=== PATIENT | male | born 1940 | race Caucasian/White ===

== ENCOUNTER 2017-07-12 19:35 | Inpatient (IN) | payer MEDICARE ==
[~2017-07-12] VITALS: Ht 177.8 cm; Wt 82.1 kg
[~2017-07-12 19:35] MED LIST: AVANDIA8 MG; BAYER CHEWABLE81 MG PO; COUMADIN 5 MG TA5 M1; CRESTOR40 MG PO; HYDROCHLOROTHIA25 M1 PO; LEVEMIR; LISINOPRIL10 MG PO; NOVOLOG100 UNIT/1; PRINIVIL10 MG PO; SERTRALINE HCL100 MG PO; TOPROL XL200 MG; VERAPAMIL HCL120 M4 PO; ZETIA10 MG PO
[2017-07-12 19:37] VITALS: BP 108/66
[2017-07-12 20:01] LABS: HEMATOCRIT 28.1 % (42.0-52.0); HEMOGLOBIN 9.3 gm/dL (14.0-18.0); MCH 28.3 pg (26.0-34.0); MCHC 33.2 g/dL (28.0-37.0); MCV 85.2 fL (80.0-100.0); MPV 8.1 fl. (7.2-11.1); NUCLEATED RBCS 0 /100WBC; PLATELET COUNT* 170 thou/uL (150-400); RDW-CV 15.5 % (10.5-14.5); WBC 5.5 thou/uL (4.0-11.0)
[2017-07-12] MEDS ORDERED: ELIQUIS5 MG PO (20:04)
[2017-07-12 20:07] LABS: CALCIUM 8.1 mg/dL (8.5-10.1); CREATININE 1.1 mg/dL (0.6-1.3)
[2017-07-12 20:12] LABS: ALBUMIN 2.1 g/dL (3.4-5.0); TOTAL BILIRUBIN 0.5 mg/dL (<0.1-1.0); TOTAL PROTEIN 5.1 g/dL (6.4-8.2)
[2017-07-12 20:15] LABS: ABSOLUTE LYMPHOCYTES 0.4 thou/uL (0.8-5.3); ABSOLUTE MONOCYTES 0.2 thou/uL (0.0-1.2); ABSOLUTE NEUTROPHILS 4.8 thou/uL (1.6-8.1); ATYPICAL LYMPHS 4 %; PLATELET ESTIMATE ADEQUATE
[2017-07-12 21:23] LABS: INFLUENZA A ANTIGEN None Detected (None Detect); INFLUENZA B ANTIGEN None Detected (None Detect)
[2017-07-12 21:51] LABS: URINE BILIRUBIN NEGATIVE (Negative); URINE BLOOD NEGATIVE (Negative); URINE CLARITY CLEAR; URINE COLOR YELLOW; URINE GLUCOSE-RANDOM 2+ (Negative); URINE KETONES TRACE (Negative); URINE LEUKOCYTES-REFLEX NEGATIVE (Negative); URINE NITRITE-REFLEX NEGATIVE (Negative); URINE PROTEIN 1+ (Negative); URINE SPECIFIC GRAVITY 1.015 (1.005-1.030); URINE UROBILINOGEN 0.2 E.U./dl (0.2-1.0)
[2017-07-12] MEDS ORDERED: NEURONTIN 300300 M1 PO (22:32)
[2017-07-12] MEDS ORDERED: GLUCOPHAGE XR500 M1 PO (22:33)
[2017-07-12] MEDS ORDERED: TRAMADOL 50 MG50 MG PO (22:34)
[2017-07-12] MEDS ORDERED: VERAPAMIL E.R240 M1 PO (22:35)
[2017-07-12] MEDS ORDERED: NOVOLOG100 UNIT/1 SUBQ (22:35)
[2017-07-12] MEDS ORDERED: AUGMENTIN 500-1 EACH PO (22:36)
[2017-07-12] MEDS ORDERED: VITAMIN D1000 UNI2 PO (22:37)
[2017-07-12] MEDS ORDERED: VITAMIN B-12500 MCG PO (22:38)
[2017-07-12 23:54] VITALS: BP 129/66
[2017-07-13 04:00] VITALS: BP 150/58
--- NOTE | 2017-07-13 05:04 | NUR ---
PT ADMITTED FROM ER. HISTORY AND ASSESSMENT COMPLETE. AFIB ON MONITOR. WOUND VAC TO R FOOT UPON ADMIT. UP TO BSC WITH 2 ASSIST. FALL PRECAUTIONS IN PLACE INCLUDING BED ALARM. IVF INFUSING. DENIES PAIN.
[2017-07-13 07:30] VITALS: BP 156/65
--- NOTE | 2017-07-13 10:11 | NUR ---
ASSESSMENT COMPLETED REFER TO COMPUTER CHARTING. CREATIVE SERVICES INTERN TRACKING AFIB. PATIENT REPORTING NO PAIN, NAUSEA OR SHORTNESS OF BREATH. BED IN LOW AND LOCKED POSITION. CALL LIGHT WITHIN REACH. FAMILY AT BEDSIDE. IV FLUIDS INFUSING. ELVATED TEMP OF 101.9 THIS AM. WILL CONTINUE TO MONITOR THIS SHIFT.
[2017-07-13 12:05] VITALS: BP 127/52
[2017-07-13] MEDS ORDERED: TYLENOL325 MG PO (14:13)
[2017-07-13] MEDS ORDERED: DICLOFENAC OPHTHALMIC (14:18)
[2017-07-13] MEDS ORDERED: LANTUS100 UNIT/M SUBQ (14:19)
[2017-07-13] MEDS ORDERED: COLACE100 MG PO (14:21)
[2017-07-13] MEDS ORDERED: FERROUS GLUCON324 M2 PO (14:22)
[2017-07-13] MEDS ORDERED: SENNA8.6 MG PO (14:24)
[2017-07-13] MEDS ORDERED: FLORANEX TABLE1 EACH PO (14:52)
--- NOTE | 2017-07-13 15:38 | NUR ---
Pt out of room at MRI. Reviewed chart and spoke with Hansa at [facility]. Pt has been at skilled at [facility], they are able to accept Pt back at md. Pt has primarily using a wc, d/t wound vac on foot. Pt also has a cane and walker. Dr Scales in to see Pt, scheduled to have surgery with Dr Lyons tomorrow at 330.
[2017-07-13 15:52] VITALS: BP 138/66
--- NOTE | 2017-07-13 17:42 | EKG ---
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 : [id number] Requested By: Leandro Thomas Order Number: [id number] MD: Noah Bundy Measurements Intervals [place] Rate: 103 P: MS: QRS: 57 QRSD: 86 T: 80 QT: 381 QTc: 499 Interpretive Statements Atrial fibrillation Low voltage, extremity leads Baseline wander in lead(s) V6 No previous ECG available for comparison Electronically Signed On 07-13-2017 17:42:27 [employer]PER[employer]OR [employer] by Noah Bundy [email or web address] <ELECTRONICALLY SIGNED> By: Noah Bundy MD, [facility] 07/13/17 1742 D: 01/2213 13 Noah Bundy MD, FACC /EPI
[2017-07-13 20:00] VITALS: BP 151/65
[2017-07-13 22:06] LABS: ABSOLUTE LYMPHOCYTES 0.7 thou/uL (0.8-5.3); ABSOLUTE MONOCYTES 0.3 thou/uL (0.0-1.2); ABSOLUTE NEUTROPHILS 3.4 thou/uL (1.6-8.1); BASOPHILS 0.3 %; EOSINOPHILS 0.1 %; HEMATOCRIT 26.2 % (42.0-52.0); HEMOGLOBIN 8.8 gm/dL (14.0-18.0); LYMPHOCYTES 16.3 %; MCH 28.3 pg (26.0-34.0); MCHC 33.5 g/dL (28.0-37.0); MCV 84.5 fL (80.0-100.0); NUCLEATED RBCS 0 /100WBC; PLATELET COUNT* 147 thou/uL (150-400); POLYS 76.3 %; RDW-CV 15.5 % (10.5-14.5); WBC 4.4 thou/uL (4.0-11.0)
[2017-07-13 22:37] LABS: ALBUMIN 1.8 g/dL (3.4-5.0); CALCIUM 7.7 mg/dL (8.5-10.1); CREATININE 0.9 mg/dL (0.6-1.3); POTASSIUM 3.1 mmol/L (3.5-5.1); TOTAL BILIRUBIN 0.4 mg/dL (<0.1-1.0); TOTAL PROTEIN 4.6 g/dL (6.4-8.2)
[2017-07-13 23:11] LABS: ESR (SEDRATE) 14 mm/hr (0-20)
[2017-07-14 00:04] VITALS: BP 153/44
[2017-07-14 03:59] VITALS: BP 123/62
--- NOTE | 2017-07-14 05:33 | NUR ---
PT CARE ASSUMED AFTER REPORT. ASSESSMENT COMPLETE. AFIB ON MONITOR. UP WITH X2 ASSIST TO BSC. WEAKNESS AND UNSTEADY GAIT. DENIES PAIN. DRESSING TO R FOOT C/D/I. NPO SINCE MIDNIGHT FOR PROCEDURE TODAY. SLOW TO PROGRESS TOWARDS GOALS.
[2017-07-14 08:12] VITALS: BP 139/57
--- NOTE | 2017-07-14 11:04 | NUR ---
ASSUMED CARE OF PT THIS AM AROUND 07- PUSH BUTTON SWITCH ASSEMBLER IN PLACE ORDERED, TRACING A-FIB/RATE CONTROLLED- UPON ASSESSMENT PT NOTED TO BE RESTING IN BED, EYES CLOSED, EASILY AROUSABLE- PT A&O X 4- CONTINENT OF BOWEL AND BLADDER- ASSIST X2 TO BED SIDE COMMODE- LCTA, RESP EVEN AND UN-LABORED- VSS, O2 SAT 99% ON RA- NO C/O DYSPNEA NOTED- ABDOMEN SOFT/ROUND/NON-TENDER, BS X4 QUADS- PT REPORTS LAST BM 07/13/17- +1 BLE EDEMA NOTED- DRESSING TO RIGHT FOOT C/D/I- IV NOTED TO LEFT AC INTACT AND SL- PT CURRENLTY NPO FOR SCHEDULED RIGHT FOOT AMP TODAY- BS MONITORED ORDERED, INSULIN HELD AT THIS TIME R/T NPO STATUS- PT DENIES ANY C/O PAIN/DISCOMFORT AT THIS TIME- CALL LIGHT AND PERSONAL BELONGINGS WITH IN REACH- HOURLY ROUNDS IN PLACE R/T SAFETY/NEEDS- ALL NEEDS MET AT THIS TIME-WCTM
--- NOTE | 2017-07-14 12:44 | CON ---
[address] [address] CONSULTATION Name: VERNON AGUILA MAKENNA Room: [address] IN M.R.#: [id number] Admission: 07/12/17 Attend Phys: Billy Nicole MD Discharge: Date of : 42 Report #: [id number] THIS REPORT FOR: //name// CC: Billy Richard DATE OF SERVICE: 07/13/2017 ATTENDING PHYSICIAN: Billy Nicole MD REASON FOR EVALUATION: Fever with sepsis, lactic acidemia. HISTORY OF PRESENT ILLNESS: Chart reviewed, patient examined. This is a 76-year-old with diabetes mellitus type 2 complicated by vasculopathy, has peripheral neuropathy, previous, and more recent foot surgeries due to osteomyelitis, presented with 1 week history of fevers which have been a high grade. He is not able to give a lot of details. He did note he had recent surgery, felt to have osteomyelitis, extensive debridement including osteoectomy, I believe 2-3 weeks ago. He has had a cough, although denies significant shortness of breath, abdominal pain, although had some loose stools. Evaluation, was noted to have an elevated lactic acid at 3.2. Chest x-ray, perhaps right basilar infiltrate. Influenza antigen was negative. Urinalysis unremarkable. Blood cultures are sterile thus far. Empirically is placed on antibiotics including piperacillin and tazobactam as well as vancomycin. ALLERGIES: PROZAC, PROCAINAMIDE. CURRENT MEDICINES: Include Zosyn, vancomycin, insulin, acetaminophen, ibuprofen. 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 SOCIAL HISTORY: Nonsmoker, no ethanol. FAMILY HISTORY: Noncontributory. REVIEW OF SYSTEMS: As above. PHYSICAL EXAMINATION: GENERAL: He appears chronically ill. He is in mild distress, likely mildly encephalopathic, perhaps [id number], undernourished. VITAL SIGNS: Temperature max 101.9, more recently 99.4; pulse 79; respirations 14; blood pressure 127/52[place] [address] CONSULTATION Name: VERNON AGUILA Room: [address]#: [id number] Admission: 07/12/17 Attend Phys: Billy Nicole MD Discharge: Date of : 42 Report #: [id number] SKIN: Warm, dry, no rashes. HEENT: ____. NECK: Supple. LUNGS: Some basilar crackles posteriorly. HEART: Regular. Borderline tachycardic, cannot appreciate a murmur. ABDOMEN: Soft, nontender, nondistended. EXTREMITIES: Right foot has a wound VAC in place. Defect extending only ____ his lateral aspect of the foot involving the dorsum. GENITOURINARY: Deferred. RECTAL: Deferred. LABORATORY DATA: Blood cultures sterile thus far. Lactic acid serially was 3.2, 3.3 and most recently 2.5. Prealbumin 9.4. Troponin less than 0.06. Urinalysis unremarkable. Influenza antigen was negative. X-ray of the foot: Amputation of the majority of the fifth metatarsophalangeal second through fourth toes, erosive changes involving the second and third metatarsal heads. Chest x-ray: Cardiomegaly with some basilar atelectasis versus infiltrate on the right. CBC: White count of 5.5, H and H 9.3 and 28.1, platelets of 170. He does have lymphocytopenia of 400. Electrolytes: Sodium 130, potassium 4.0, chloride 96, bicarbonate is 27, anion gap of 7, BUN and creatinine 15 and 1.1, glucose elevated to 377. Albumin of 2.1, total protein of 5.1, estimated GFR of 65. LFTs normal. ASSESSMENT: Febrile illness. The patient did have recent surgery, treated, I believe for chronic osteomyelitis involving his right foot. He is post metatarsal osteoectomy. We will continue empiric antimicrobials. Await results of the cultures. Foot seems to be most likely possible source of pyogenic infection. [facility] results and see how he does clinically. Certainly could be a viral secondary to the fact that he is at a facility and ____ viral or respiratory type illnesses, though in the absence of progressive pulmonary complaints other than a dry cough, that seems less likely as well. We will monitor expectantly. <ELECTRONICALLY SIGNED> By: Kevin Brand MD 07/14/17 1244 1230 0129Josocrates Brand MD /nt
[2017-07-14 15:13] VITALS: BP 139/57
[2017-07-14 18:32] VITALS: BP 163/90
--- NOTE | 2017-07-14 18:33 | NUR ---
PT OFF UNIT AT 1445 FOR SURGERY AND RETURNED BACK TO UNIT POST RAY AMP TO RIGHT FOOT AT 1720- VS 98.9 19 136/90 77 96% ON RA- RIGHT FOOT ELEVATED ON PILLOW INSTRUCTED WITH BANDAGE WITH LONI WRAP IN PLACE- BS NOTED AT 168 WITH SSI GIVEN PRESCIBED- PT SET UP AND CURRENLTY EATING DINNER AT THIS TIME- DAUGHTER AT SIDE VISITTING- PT DENIES ANY C/O PAIN/DICOMFORT AT THIS TIME- CALL LIGHT AND PERSOANL BELONGINGS WITH IN REACH- ALL NEEDS MET AT THIS TIME-WCTM
[2017-07-14 20:00] VITALS: BP 141/59
[2017-07-15] VITALS: BP 123/69
[2017-07-15 03:57] VITALS: BP 137/62
[2017-07-15 05:00] LABS: HEMATOCRIT 24.8 % (42.0-52.0)
--- NOTE | 2017-07-15 05:14 | NUR ---
PT CARE ASSUMED AFTER REPORT. ASSESSMENT COMPLETE. AFIB ON MONITOR. DRESSING TO R FOOT C/D/I. ELEVATED ON A PILLOW. PRN PAIN MEDICATION GIVEN PER PT REQUEST. CALL LIGHT IN REACH. BED IN LOWEST POSITION. PROGRESSING TOWARDS GOALS.
[2017-07-15 07:53] VITALS: BP 177/72
[2017-07-15 08:08] LABS: GLYCOHEMOGLOBIN (HGB A1C) 7.6 % (4.8-5.6)
[2017-07-15 10:38] LABS: CALCIUM 7.8 mg/dL (8.5-10.1); CREATININE 0.8 mg/dL (0.6-1.3); MAGNESIUM 1.1 mg/dL (1.8-2.4); POTASSIUM 3.2 mmol/L (3.5-5.1)
--- NOTE | 2017-07-15 10:45 | NUR ---
ASSUMED CARE OF PT THIS AM AROUND 0715- SAFE EXPERT IN PLACE ORDERED, TRACING A-FIB- UPON ASSESSMENT PT NOTED TO BE RESTING IN BED, EYES CLOSED- PT A&O X4- CONTINENT OF BOWEL AND BLADDER- BED REST IN PLACE, Q 2 HOUR TURNS- LCTA, DIMINISHED IN BASES- RESP EVEN AND UN-LABORED- VSS, O2 SAT 98% ON RA- ABDOMEN SOFT/ROUND/NON-TENDER, BS X4 QUADS- LAST BM REPORTED 07/14/17- +1 BLE EDEMA NOTED- RIGHT FOOT ELEVATED ON PILLOW INDICATED- DRESSING TO RIGHT FOOT C/D/I- PRN TYLENOL GIVEN THIS AM AT 0826, PER PT REQUEST, PARTIAL EFFECTIVNESS NOTED- FAIR PO INTAKE NOTED THIS AM- BS MONITORED ORDERED, SSI PRESCRIBED- IV NOTED TO RIGHT HAND INTACT AND SL- CALL LIGHT AND PERSONAL BELONGINGS WITH IN REACH- HOURLY ROUNDS IN PLACE R/T SAFETY/NEEDS- ALL NEEDS MET AT THIS TIME-WCTM
--- NOTE | 2017-07-15 12:03 | NUR ---
Spoke with Pt this AM. He plans to return to [facility] [place]. Pt stated that he normally resides at home, his dtr lives with him and does the cooking and cleaning. Pt was driving upon his hospital stay. Pt stated that he had just started getting up with a walker at [facility]. Following.
[2017-07-15 12:14] VITALS: BP 143/56
--- NOTE | 2017-07-15 14:18 | NUR ---
WOUND CARE NOTE: CONSULT RECEIVED FOR METATARSAL AMPUTATION RT FOOT. PATIENT IS POD #1, DRESSING INTACT WITH LARGE AMOUNTS OF SEROSANGUINEOUS DRAINAGE. DRESSINGS REMOVED, NO ACTIVE BLEEDING NOTED. MEDIAL ASPECT OF FOOT WITH INCISION, THIS IS WELL APPROXIMATED WITH SUTURES. SLIGHTLY EDEMATOUS WITH SMALL AMOUNTS OF SEROUS DRAINAGE. LATERAL END OF FOOT WITH ORIGINAL ULCERATION. WOUND MEASURES 7.5X3.5X1.5. RED, MOIST WOUND BED. WILTON-WOUND SLIGHTLY MACERATED. VERY LATERAL SIDE OF FOOT WITH ULCERATION MEASURING 0.7X0.5X0.1, YELLOW/HERNANDEZ SLOUGH TO ENTIRE ASPECT OF WOUND. WILTON-WOUND INTACT. PLANTAR FOOT WOUND MEASURING 0.8X0.9X0.1, SIMILAR IN APPEARANCE TO THE LATERAL MOST FOOT WOUND. WOUND BED WITH YELLOW/HERNANDEZ SLOUGH TO ENTIRE ASPECT OF WOUND. WILTON-WOUND SLIGHLY MACERATED. CLEANSED ALL WOUNDS/INCISION GENTLY WITH WOUND CLEANSER, PATTED DRY. APPLIED AQUACEL AG TO WOUNDS AND INCISION LINE. COVERED WITH ABD. SECURED WITH KERLIX AND LONI. EDUCATED PATIENT ON KEEPING OFF FOOT TO ASSIST WITH WOUND HEALING, COMMUNICATED UNDERSTANDING. EDUCATED PATIENT ON NUTRITION FOR WOUND HEALING, COMMUNICATED UNDERSTANDING. RECOMMEND OFFLOAD RIGHT FOOT ENCOURAGE GOOD NUTRITION AND HYDRATION TIGHT BLOOD GLUCOSE CONTROL
[2017-07-15 16:45] VITALS: BP 153/75
--- NOTE | 2017-07-15 18:27 | NUR ---
PT CURRENTLY RESTING IN BED, DAUGHTER AT SIDE VISITTING- CARDIAC MONIOTR IN PLACE ORDERED AND CONTINUED, TRACING A-FIB- IV TO RIGHT HAND INTACT AND SL- ORDERS RECIVED FOR PICC TO BE PLACED TODAY PER , PICC NURSE NOTIFIED AND STATES THAT SHE WILL NOT BE ABLE TO DO UNTIL 07/16/17- BETH CLARIFIED AND RESTARTED THIS SHIFT PER - DRESSING TO RIGHT FOOT CHANGED PER WN THIS SHIFT, DRESSING REMAINS C/D/I- LEG ELEVATED ON PILLOW INDICATED- PRN HYDROCODONE AND TYLENOL ALTERNATED THIS SHIFT FOR PAIN, PT REPORTS MEDICATIONS TO BE EFFECTIVE IN MANAGING PAIN- K+ NOTED AT 3.2 AND REPLACED X2 THIS SHIFT PER PROTOCOL, MG NOTED AT 1.1 AND REPLACED X4 THIS SHIFT PER PROTOCOL- REDRAW SCHEDULED FOR 2100- VANC TROUGH RESULTED AT 17 THIS SHIFT, CURRENT DOSE CONTINUE AND GIVEN PRESCRIBED- ZOYSN D/C'D THIS SHIFT PER - HERE TO ASSESS THIS SHIFT- BS MONITORED WITH SSI PRESCRIBED- FAIR PO INTAKE NOTED- CALL LIGHT AND PERSONAL BELONGINGS WITH IN REACH- ALL NEEDS MET AT THIS TIME-WCTM
[2017-07-15 20:49] VITALS: BP 144/69
[2017-07-16] VITALS: BP 141/57
[2017-07-16 04:00] VITALS: BP 172/77
[2017-07-16 08:00] VITALS: BP 160/94
--- NOTE | 2017-07-16 08:13 | NUR ---
PT IS ABLE TO COMMUNICATE HIS NEEDS TO STAFF EFFECTIEVLY. CURRENT PAIN MEDICATION REGIMEN HAS BEEN ADEQUATE FOR CONTROLLING HIS PAIN UP TO THIS TIME. RIGHT FOOT TOES AMPUTATED AND HAVE A SURGICAL BANDAGE + LONI WRAP; SURG AND DR. HINES TO FOLLOW UP WITH PATIENT SOON.
--- NOTE | 2017-07-16 10:05 | NUR ---
ASSUMED CARE OF PT AT 0730 AFTER RECIEVING BEDSIDE REPORT FRON NOC SHIFT NURSE. PT IS A&O X4 CALM AND COOPERATIVE. PT HR HAS BEEN IN THE 150-160'S RANGE. DR GAYLE NOTIFIED AND DILATIAZEM DRIP STARTED AT 10ML/HR PRESSURE STABLE AT125/72 AND RATE INCREASED TO 15ML/HR, RATE CURRENTLY IN THE 130'S TO LOW 140'S. NURSING WILL CONTINUE TO MONITOR AND TITRATE PER ORDDERS.
[2017-07-16 11:59] VITALS: BP 123/58
--- NOTE | 2017-07-16 15:39 | NUR ---
NOTIFIED TO PLACE A PICC FOR A PATIENT DISCHARGING HOME WITH IV ANTIBIOTICS. ORDER AND CONSENT NOTED. THE PROCEDURE WELL BENIFITS AND RISK FOR DVT AND INFECTION DICUSSED AND HE VERBALIZED UNDERSTANDING. A #3F SINGLE LUMEN POWER PICC PLACED PER POLICY AFTER A BEDSIDE TIMEOUT COMPLETE. PICC TRIMMED TO 45CM AND ADVANCED WITHOUT DIFFICULTY. LINE CONFIRMED AT 0CM EXTERNAL. LINE SECURED AND RELEASED FOR USE
[2017-07-16 16:18] VITALS: BP 114/73
[2017-07-16 20:40] VITALS: BP 119/52
[2017-07-17] VITALS: BP 119/52
[2017-07-17 04:00] VITALS: BP 123/56
[2017-07-17 08:00] VITALS: BP 120/55
--- NOTE | 2017-07-17 08:09 | NUR ---
PATIENT RESTING IN BED. DENIES NEEDS. REPORT GIVEN TO ONCOMING NURSE. BED ALARM ON.
[2017-07-17 08:10] LABS: MAGNESIUM 1.6 mg/dL (1.8-2.4); POTASSIUM 3.5 mmol/L (3.5-5.1)
[2017-07-17 16:38] VITALS: BP 105/66
[2017-07-17 20:00] VITALS: BP 108/68
[2017-07-17 23:45] VITALS: BP 110/70
[2017-07-18 04:50] LABS: HEMATOCRIT 21.5 % (42.0-52.0); HEMOGLOBIN 7.2 gm/dL (14.0-18.0); MCH 27.5 pg (26.0-34.0); MCHC 33.6 g/dL (28.0-37.0); MPV 8.7 fl. (7.2-11.1); RBC 2.62 mil/uL (4.50-6.00); RDW-CV 15.8 % (10.5-14.5)
[2017-07-18 05:05] LABS: ALBUMIN 1.7 g/dL (3.4-5.0); CALCIUM 8.1 mg/dL (8.5-10.1); CREATININE 0.7 mg/dL (0.6-1.3); MAGNESIUM 1.8 mg/dL (1.8-2.4); POTASSIUM 3.5 mmol/L (3.5-5.1); TOTAL BILIRUBIN 0.3 mg/dL (<0.1-1.0); TOTAL PROTEIN 4.5 g/dL (6.4-8.2)
[2017-07-18 05:47] VITALS: BP 100/44
[2017-07-18 08:01] VITALS: BP 104/54
[2017-07-18 13:18] VITALS: BP 119/54
[2017-07-18 16:31] VITALS: BP 127/67
--- NOTE | 2017-07-18 19:03 | NUR ---
ASSUMED CARE OF PT AT 0735. PT CONTINUES TO BE A&O X4 CALM AND COOPERATIVE. C/O OF RIGHT FOOT PAIN CONTROLLED WITH PRN PO PAIN MEDICATIONS. PT HAS NO C/O DISTRESS, VSS, O2 SATS ADEQUATE ON ROOM AIR. DRESSING TO RIGHT FOOT CHANGED. NURSING WILL CONTINUE TO MONITOR.
[2017-07-18 20:00] VITALS: BP 134/68
[2017-07-18 23:37] VITALS: BP 113/53
[2017-07-19 04:17] VITALS: BP 110/53
[2017-07-19 04:39] LABS: HEMATOCRIT 20.7 % (42.0-52.0); MCH 27.3 pg (26.0-34.0); MCHC 34.1 g/dL (28.0-37.0); MCV 80.2 fL (80.0-100.0); MPV 7.8 fl. (7.2-11.1); RBC 2.58 mil/uL (4.50-6.00); RDW-CV 15.7 % (10.5-14.5); WBC 4.7 thou/uL (4.0-11.0)
[2017-07-19 05:04] LABS: ALBUMIN 1.7 g/dL (3.4-5.0); CALCIUM 8.3 mg/dL (8.5-10.1); MAGNESIUM 1.7 mg/dL (1.8-2.4); POTASSIUM 3.1 mmol/L (3.5-5.1); TOTAL BILIRUBIN 0.3 mg/dL (<0.1-1.0); TOTAL PROTEIN 4.4 g/dL (6.4-8.2)
--- NOTE | 2017-07-19 05:40 | NUR ---
PT CARE ASSUMED AFTER REPORT. ASSESSMENT COMPLETE. AFIB ON MONITOR. CONTACT PRECAUTIONS IN PLACE. PRN PAIN MEDICATION GIVEN PER PT REQUEST. PT BG 45 AT 0450. AMP D50 GIVEN AFTER JUICE AND GRAHM CRACKERS. BG CAME UP TO 132. DRESSING TO R FOOT C/D/I. ELEVATED ON PILLOWS. CALL LIGHT IN REACH. BED IN LOWEST POSITION. FALL PRECAUTIONS IN PLACE INCLUDING BED ALARM. PROGRESSING TOWARDS GOALS.
[2017-07-19 08:00] VITALS: BP 112/61
--- NOTE | 2017-07-19 08:00 | NUR ---
VSS, ASSUMED CARE IN THE AM, ASSESSMENT PERFORMED AND CHARTED, FALL PRECAUTIONS INPLACE AND CALL LIGHT IN REACH, PT IS A&O4 N RA AND UP WITH MAX ASSIST EELING VERY WEAK, PT GAOL IS TO WORK WITH PT/OT AND IMPROVE ACTIVITY, PT IS TRACING A-FIB ON THE MONITOR WILL FOLLOW WITH PLAN OF CARE.
[2017-07-19 12:38] VITALS: BP 109/52
[2017-07-19 16:58] VITALS: BP 110/56
[2017-07-19 17:01] VITALS: BP 109/68; BP 129/68; BP 133/73; BP 139/68
[2017-07-19 17:01] LABS: % SATURATION 8 % (20-39); IRON 14 ug/dL (50-175)
--- NOTE | 2017-07-19 19:12 | NUR ---
VSS, PT IS TRACING AFIB ON THE MONITOR, UP WITH MAX ASSIST, PT IS WEAK AND ON RA AND IS A&O4, PT IS RECEVING BLOOD AT THIS TIME, PT WORKED WITH PT AND SAT UP TO BEDSIDE, WILL FOLLOW WITH PLAN OF CARE AND HOURLY ROUNDS COMPLETED.
[2017-07-19 20:00] VITALS: BP 129/69
[2017-07-20 00:24] VITALS: BP 126/62
--- NOTE | 2017-07-20 04:19 | NUR ---
FINISHED 1 UNIT OF BLOOD AT BEGINNING OF SHIFT WITHOUT ADVERSE REACTION NOTED. RESTING WITHOUT COMPLAINTS. DRESSING TO RT LE DRY AND INTACT. BED IN LOW POSITION, CALL LIGHT WIHIN REACH. NO SIGN OF DISTRESS, CONT. WITH CURRENT PLAN OF CARE AT THIS TIME.
[2017-07-20 04:22] VITALS: BP 128/75
[2017-07-20 07:30] VITALS: BP 138/68
[2017-07-20 09:30] LABS: HEMATOCRIT 28.8 % (42.0-52.0)
[2017-07-20 09:31] LABS: HEMOGLOBIN 9.1 gm/dL (14.0-18.0)
--- NOTE | 2017-07-20 10:47 | NUR ---
Updated Hansa at [facility] that Pt should be ready to dc within the next few days.
[2017-07-20 12:00] VITALS: BP 126/80
--- NOTE | 2017-07-20 14:46 | S ---
[place] [address] SURGICAL PATH RPT PROCEDURE Name: VERNON AGUILA Room: [facility]- ADM IN M.R.#: [id number] Admission: 07/12/17 Date of : 42 Discharge: Report #: [id number] Path Case #: [id number] PATHOLOGY REPORT COLLECTION DATE: 07/15/2017 RECEIVED DATE: 07/15/2017 SUBMITTING PHYS: Dr. William Sclaes OTHER PHYS: Dr. Billy Brand SPECIMEN(S) RECEIVED: A.Right great toe B.Right foot metatarsals 1 - 4 * * * * * * * * * * * * FINAL DIAGNOSIS: A. Right great toe, amputation: - Benign great toe with extensive acute inflammation and necrosis of soft tissues and osteomyelitis of underlying phalangeal bone, with proximal disarticulation margin free of osteomyelitis. - Soft tissues with severe calcifying arteriosclerosis and prominent acute inflammation at proximal resection margin. B. Right foot metatarsals 1 through 4: - Four benign metatarsal segments, all with proximal transection margins free of osteomyelitis. - Distal aspect of metatarsal 4 with prominent osteomyelitis. - Soft tissues (attached to metatarsal 2) showing severe, near occlusive, calcifying arteriosclerosis. (TARIQ:db; 07/20/2017) PATHOLOGIST: Fish Heaton M.D. REPORT ELECTRONICALLY SIGNED BY: Fish Heaton M.D. DATE/TIME: 07/20/2017 14:46 * * * * * * * * * * * * GROSS PATHOLOGY: A. The specimen is received in formalin labeled "Vrenon Aguila, right great toe". Received is an amputated digit measuring 6.5 x 3.9 x 3.2 cm in greatest dimensions. The bone margin is smooth and concave in appearance, consistent with disarticulation. The soft tissue margin is moderately necrotic in appearance. The bone and soft tissue margins are inked black. The nail is present displaying a pale barraza, thickened and flaky appearance. The medial aspect of the specimen displays a poorly circumscribed, irregular in contour and bob-brown to brown-black lesion measuring 3.8 x 2.1 cm, which grossly abuts the skin margin. A full-thick[place] [address] SURGICAL PATH RPT PROCEDURE Name: VERNON AGUILA Room: [address] IN [facility].#: [id number] Admission: 07/12/17 Date of : 42 Discharge: Report #: [id number] Path Case #: [id number] submitted in cassettes A1 through A3, from proximal to distal aspects, following decalcification. A access representative section of the aforementioned lesion with adjacent skin margin is submitted in cassette A4. B. The specimen is received in formalin labeled "Vernon Aguila, right foot metatarsals 1 through 4". Received are 4 segments of bone, connected by bob-barraza to pale barraza soft tissue, ranging in size from 2.9 x 1.6 x 1.2 to 4.8 x 2.4 x 2.3 cm in greatest dimensions. The bone margins are blunted in appearance, consistent with transection. The opposing bone margins of toes 1 through 3 are smooth and convex in appearance, consistent with disarticulation. The opposing bone margin of toe 4 is jagged in appearance. The transected margins are inked as follows: Toe 1-black, toe 2-blue, toe 3-yellow, toe 4-red. Each segment of bone is longitudinally sectioned and access representative sections are submitted as follows: B1 longitudinal section of toe 1 transected margin, following decalcification B2 longitudinal section of toe 2 transected margin, following decalcification B3 longitudinal section of toe 3 transected margin, following decalcification B4 full-thickness longitudinal cross-section of toe 4, following decalcification. (CAA; 07/16/2017) CLINICAL HISTORY: Osteomyelitis right foot Transmetatarsal amputation (RAY) INITIAL CPT CODE(S): A; 72360, 49291 B; 29559, 80729 Professional services performed by [employer] at [facility], [facility] [address], [place] [address]. Technical services performed by [employer] at [address] [place] [address], [address], [place] [address]. [facility] [employer] [address] [place] [address] PHONE: [phone] DIRECTOR: Arcenio Iglesias M.D. * * * END OF REPORT * * *
[2017-07-20 16:00] VITALS: BP 136/72
--- NOTE | 2017-07-20 19:57 | NUR ---
vss, assumed care of pt in the am, ASSESSMENT PERFORMED AND CHARTED, FALL PRECAUTIONS IN PLACE AND CALL LIGHT IN REACH, PT IS A&O4 ON RA AND IS AFIB ON THE MONITOR, PT DENIES ANY PAIN AND IS UP WITH MAX ASSIST, 50% WEIGHT BEARING ON RIGHT FOOT, PT GOAL IS TO SIT UPO IN CHAIR AND IMPROVE DIET, AT THIS TIME HOURLY ROUNDS COMPLETED, PT MET GOAL WORKED WITH PT/OT AND WAS UP IN CHAIR FOR LUNCH AND DINNER. NO OTHER STATUS CHANGE AT THIS TIME,
[2017-07-20 20:00] VITALS: BP 127/81
--- NOTE | 2017-07-21 00:52 | NUR ---
NO COMPLAINTS OF PAIN OR DISCOMFORT. CONT. A-FIB ON MONITOR. ASSIST WITH BEDPAN, AND TURNING EVERY 2 HOURS. NO SIGN OF DISTRESS. BED IN LOW POSITION, CALL LIGHT IN REACH, BED ALARM ON. CONT. WITH CURRENT PLAN OF CARE AT THIS TIME.
[2017-07-21 01:16] VITALS: BP 108/53
[2017-07-21 04:00] VITALS: BP 113/65
[2017-07-21 07:54] VITALS: BP 116/64
--- NOTE | 2017-07-21 09:45 | NUR ---
ASSUMED CARE OF PT THIS AM AROUND 0715- PUMP ROOM OPERATOR IN PLACE ORDERED, TRACING A-FIB RATE CONTROLLED- UPON ASSESSMENT PT NOTED TO BE RESTING IN BED, EYES CLOSED- PT A&O X4- CONTINENT OF BOWEL AND BLADDER- BED REST IN PLACE WITH Q 2 HOUR TURNS- CRACKLES NOTED, RESP EVEN AND [id number] COUGH NOTED, WITH CLEAR SPUTUM REPORTED PER PT- UP DATED ON ASSESSMENT FINDINGS WITH ORDERS RECIVED FOR CHEST X-RAY AND LABS- ABDOMEN SOFT/ROUND/NON-TENDER, BS X4 QUADS- PT REPORTS BM 07/23/17 AT HS- +1 EDEMA NOTED TO UE, 1-2+ BLE PITTING EDEMA- BS MONITORED ORDERED, INSULIN HELD THIS AM WITH BS NOTED AT 85- RUE SINGLE LUMEN PICC NOTED, DRESSING C/D/I- DRESSING TO RLE INTACT WITH NO VISIBLE DRAINAGE NOTED-GOOD PO INTAKE NOTED THIS AM WITH [employer]- PT DENIES ANY C/O PAIN/DISCOMFORT AT THIS TIME- CALL LIGHT AND PERSONAL BELONGINGS WITH IN REACH- HOURLY ROUNDS IN PLACE R/T SAFETY/NEEDS- ALL NEEDS MET AT THIS TIME-WCTM
[2017-07-21 10:46] LABS: ABSOLUTE MONOCYTES 0.4 thou/uL (0.0-1.2); ABSOLUTE NEUTROPHILS 4.2 thou/uL (1.6-8.1); BASOPHILS 0.3 %; EOSINOPHILS 0.7 %; HEMATOCRIT 27.6 % (42.0-52.0); HEMOGLOBIN 8.8 gm/dL (14.0-18.0); LYMPHOCYTES 17.1 %; MCH 26.5 pg (26.0-34.0); MCHC 31.9 g/dL (28.0-37.0); MCV 83.1 fL (80.0-100.0); MONOCYTES 7.3 %; MPV 8.1 fl. (7.2-11.1); NUCLEATED RBCS 0 /100WBC; POLYS 74.6 %; RBC 3.32 mil/uL (4.50-6.00); RDW-CV 17.9 % (10.5-14.5); WBC 5.7 thou/uL (4.0-11.0)
[2017-07-21 10:51] LABS: PLATELET COUNT* 307 thou/uL (150-400)
[2017-07-21 10:58] LABS: CALCIUM 8.4 mg/dL (8.5-10.1); CREATININE 1.7 mg/dL (0.6-1.3); POTASSIUM 4.6 mmol/L (3.5-5.1)
[2017-07-21 11:29] VITALS: BP 110/55
--- NOTE | 2017-07-21 14:35 | OP ---
[address] [address] OPERATIVE REPORT Name: VERNON AGUILA Room: [address] IN M.R.#: [id number] Admission: 07/12/17 Attend Phys: Billy Nicole MD Discharge: Date of : 42 Report #: [id number] THIS REPORT FOR: //name// CC: Billy Richard DATE OF SERVICE: 07/14/2017 SURGEON: William Scales DPM PREOPERATIVE DIAGNOSIS: Osteomyelitis, right distal foot with nonhealing infected ulceration. POSTOPERATIVE DIAGNOSIS: Osteomyelitis, right distal foot with nonhealing infected ulceration. PROCEDURE: 1. Transmetatarsal amputation, left foot with partial primary closure. 2. Pedicle skin flap, right foot. 3. Incision and drainage, right foot. ANESTHESIA: MAC. INJECTABLES: A 30 mL of a 1:1 mixture of 0.5% Marcaine plain and 1% lidocaine plain. HEMOSTASIS: Right ankle pneumatic tourniquet at 275 mmHg. SPECIMENS: Right distal first, second, third and fourth metatarsals. CULTURES: 1. Bone, right fourth metatarsal, aerobic and anaerobic. 2. Soft tissue, right foot, aerobic and anaerobic. ESTIMATED BLOOD LOSS: 100 mL. SUTURES: 3-0 nylon. COMPLICATIONS: None. DESCRIPTION OF PROCEDURE: The patient was brought to the OR, placed on the table supine with induction of monitored anesthesia care. A well-padded right ankle pneumatic tourniquet was placed. Right ankle block was then given. The extremity was prepped and draped aseptically. The foot was then exsanguinated with inflation of the tourniquet. A #10 surgical blade was used to create a fishmouth incision around the distal right foot and [place] [address] OPERATIVE REPORT Name: VERNON AGUILA Room: [address] IN .R.#: [id number] Admission: 07/12/17 Attend Phys: Billy Nicole MD Discharge: Date of : 42 Report #: [id number] were then retracted dorsally and plantarly exposing the distal first through fourth metatarsals. Most of the fifth metatarsal head already been previously surgically resected. Electrocautery was used for intraoperative hemostasis. A sagittal saw was then used to transect the first through fourth metatarsals through their mid shaft regions. I then removed the bone and examined it. The distal second, third and fourth metatarsals were necrotic with discolored and soft bone. We took a customer retention representative portion of the fourth metatarsal and sent it for aerobic and anaerobic bone cultures. I took some surrounding soft tissues for the same soft tissue cultures. I transected the metatarsals at the proximal aspect of the bone. It was hardened and did not have any clinical signs of infection. I removed the sesamoid from the great toe region as well and I debulked the wound anterior of unnecessary tendons and soft tissue as well as some necrotic tissue around the third and fourth metatarsal regions. I then excised redundant skin to allow adequate skin flap closure. The wound was then irrigated with 1 liter of sterile saline and dried. The plantar skin flap was then mobilized dorsally and sutured from medial to lateral using 3-0 nylon in simple interrupted fashion. I was not able to entirely close the wound, as there was too much of a soft tissue defect at the lateral fourth and fifth MTP regions from the prior surgery and soft tissue infection. I did pack the wound in this area with Gelfoam and covered it with Aquacel Ag and then the foot was wrapped with ABDs, Kerlix and Jamison bandage. The tourniquet was deflated. No active bleeding. The patient left the OR alert and oriented with no pain or complications noted. <ELECTRONICALLY SIGNED> By: William Scales DPM 07/21/17 1435 0552 [id number] Scales DPM /nt
--- NOTE | 2017-07-21 14:35 | CON ---
[address] [address] CONSULTATION Name: VERNON AGUILA MAKENNA Room: [address] IN M.R.#: [id number] Admission: 07/12/17 Attend Phys: Billy Nicole MD Discharge: Date of : 42 Report #: [id number] THIS REPORT FOR: //name// CC: Billy Sloan DO DATE OF SERVICE: 07/16/2017 CHIEF COMPLAINT: Status post right transmetatarsal amputation for osteomyelitis. He is on parenteral vancomycin, surgical cultures grew MRSA. His surgical pathology is still pending. He feels well, he has been afebrile with good appetite. He relates low grade pain to the right foot. PHYSICAL EXAMINATION: The surgical incisions have well coapted with minimal inflammation and no sharita cellulitis. There is no pallor or cyanosis of the open wound to the lateral aspect of the foot, has red granulation with a mixture of slough with no visible bone. Negative Homans or Dowd sign either extremity. IMPRESSION: Status post right transmetatarsal amputation for osteomyelitis with diabetes mellitus. PLAN: The wound was cleansed and redressed with Aquacel Ag and gauze. I will follow during his hospitalization. <ELECTRONICALLY SIGNED> By: William Scales DPM 07/21/17 1435 1125 Marie Scales DPM /brandi
--- NOTE | 2017-07-21 14:35 | CON ---
[address] [address] CONSULTATION Name: VERNON AGUILA Room: [address] IN M.R.#: [id number] Admission: 07/12/17 Attend Phys: Billy Nicole MD Discharge: Date of : 42 Report #: [id number] THIS REPORT FOR: //name// CC: Billy Sloan DO DATE OF SERVICE: 07/15/2017 CHIEF COMPLAINT: Postoperative day #1 for right transmetatarsal amputation with primary closure. HISTORY OF PRESENT ILLNESS: He had chronic osteomyelitis of the right distal fourth metatarsal, and perhaps the adjacent second and third metatarsals with a nonhealing ulceration. Surgical bone and tissue cultures growing Staphylococcus aureus, presumptive MRSA. He is on parenteral vancomycin with good tolerance. He has been afebrile, he feels better than yesterday and has a good appetite. He has had bed rest today. His Eliquis was restarted, which is fine. This morning's hemoglobin was 8.0. I reviewed Vascular Surgery's note, likely adequate perfusion for healing with no indicated Vascular Surgery at this time. PHYSICAL EXAMINATION: Incisions well coapted with no pallor, cyanosis or dehiscence. The lateral wound margin remains open as this area was unable to be surgically closed due to the substantial soft tissue loss already present preoperatively. There is red granulation with a mixture of slough to the area. No Homans' or Dowd sign noted. No sharita cellulitis. IMPRESSION: Status post right TMA with partial closure due to osteomyelitis, type 2 diabetes mellitus, peripheral vascular disease. PLAN: I ordered PT, OT for tomorrow, partial weight to the foot and a surgical shoe for transfers and short distances. Continue daily wound care. He will likely require PICC line with prolonged IV antibiotics. <ELECTRONICALLY SIGNED> By: William Scales DPM 07/21/17 1435 1823 [id number] Scales DPM /nt
--- NOTE | 2017-07-21 14:35 | CON ---
[address] [address] CONSULTATION Name: VERNON AGUILA Room: [address] IN M.R.#: [id number] Admission: 07/12/17 Attend Phys: Billy Nicole MD Discharge: Date of : 42 Report #: [id number] THIS REPORT FOR: //name// CC: Billy Sloan DO DATE OF SERVICE: 07/17/2017 CHIEF COMPLAINT: Status post right transmetatarsal amputation for osteomyelitis. He is on parenteral vancomycin, his surgical bone and tissue cultures grew MRSA. Surgical pathology is still pending. He had a low grade fever of 100.2 last night. He feels well, he denies chills or night sweats and he has a good appetite. He has low-grade pain to the right foot. PHYSICAL EXAMINATION: The surgical incision is well coapted with minimal inflammation and no sharita cellulitis. The foot is warm with palpable dorsalis pedis and posterior tibial pulses. There are no signs of acute vascular embarrassment. There is no active bleeding present. The open wound bed to the lateral foot has a mixture of granulation and slough and is packed with Gelfoam. IMPRESSION: Osteomyelitis, status post right transmetatarsal amputation. PLAN: I debrided the wound with a sterile curette to remove subcutaneous tissue and slough from the lateral aspect. This was an excisional surgical debridement. It was cleansed and then repacked with Yeimy Saldana ABD and Denver smith. I will follow the patient tomorrow for dressing change. <ELECTRONICALLY SIGNED> By: William Scales DPM 07/21/17 1435 1123 [id number] Scales DPM /nt
--- NOTE | 2017-07-21 14:35 | CON ---
[address] [address] CONSULTATION Name: VERNON AGUILA Room: [address] IN M.R.#: [id number] Admission: 07/12/17 Attend Phys: Billy Nicole MD Discharge: Date of : 42 Report #: [id number] THIS REPORT FOR: //name// CC: Billy Richard CHIEF COMPLAINT: Postoperative right transmetatarsal amputation for osteomyelitis, surgical pathology is pending. Surgical bone and tissue cultures grew MRSA. He is on parenteral vancomycin with good tolerance. He is anemic. Current hemoglobin is 7.0, hematocrit 20.7. He has been afebrile, feels well with good appetite and denies pain to the right foot. LABORATORY DATA: WBC 4.7, RBC 2.58, hemoglobin 7.0, hematocrit 20.7, platelets 193. BUN 12, creatinine 1.0, potassium 3.1, albumin 1.7. PHYSICAL EXAMINATION: Foot is improved with no inflammation or sharita cellulitis. The incision is well coapted with no pallor or cyanosis. The lateral aspect has open wound, which is packed with Gelfoam with no active bleeding. Negative Homans' or Dowd sign to either extremity. IMPRESSION: Status post right transmetatarsal amputation, osteomyelitis, diabetes mellitus with peripheral vascular disease. PLAN: The wound was cleansed and redressed with Aquacel Ag, ABD, Kerlix and Jamison. The patient may place some weight to the foot in a surgical shoe for transfers. Discussed with nurse, the patient may require blood transfusion. <ELECTRONICALLY SIGNED> By: William Scales DPM 07/21/17 1435 1242 [id number] Scales DPM /nt
[2017-07-21 16:06] VITALS: BP 127/70
--- NOTE | 2017-07-21 18:42 | NUR ---
PT CURRENTLY RESTING IN BED- ELECTRICAL LINE MECHANIC IN PLACE ORDERED, TRACING A-FIB- RUE PICC IN PLACE AND SL- ANA CHRISTLY ON HOLD R/T CRITICAL VANC OF 27- REDRAW SCHEDULED FOR 07/22/17 @ 1030- FAIR PO INTAKS NOTED WITH MEALS THIS SHIFT- DRESSING TO RIGHT LE/FOOT CHANGED THIS SHIFT PER - CHEST X-RAY RESULTS ALONG WITH BNP THIS SHIFT COMMUNICATED TO WITH INSTRUCTIONS FOR ABT TO BE CONTROLLED PER ID, ON CASE AND UPDATED- NEPHROLOGY CONSULTED FOR DIURESIS MANAGEMENT, AND CALLED THIS SHIFT FOR CONSULT- NEROLOGY YET TO SEE PT- CALL PAGED OUT TO F/U WITH CONSULT AT 1840 THIS SHIFT-BS MONITORED PRESCIBED, INSULIN AND METFORMIN PRESCRIBED- PT DENIES ANY C/O PAIN/DISCOMFORT AT THIS TIME- CALL LIGHT AND PERSONAL BELONGINGS WITH IN REACH- ALL NEEDS MET AT THIS TIME-WCTM
[2017-07-21 19:50] VITALS: BP 138/77
[2017-07-22 00:07] VITALS: BP 126/61
[2017-07-22 04:05] VITALS: BP 98/49
[2017-07-22 05:54] LABS: ABSOLUTE EOSINOPHILS 0.1 thou/uL (0.0-0.7); ABSOLUTE MONOCYTES 0.4 thou/uL (0.0-1.2); ABSOLUTE NEUTROPHILS 3.8 thou/uL (1.6-8.1); BASOPHILS 0.5 %; EOSINOPHILS 1.5 %; LYMPHOCYTES 19.1 %; MCH 26.8 pg (26.0-34.0); MCHC 33.2 g/dL (28.0-37.0); MCV 80.9 fL (80.0-100.0); MONOCYTES 6.6 %; NUCLEATED RBCS 0 /100WBC; PLATELET COUNT* 251 thou/uL (150-400); POLYS 72.3 %; RBC 2.96 mil/uL (4.50-6.00); RDW-CV 17.5 % (10.5-14.5); WBC 5.3 thou/uL (4.0-11.0)
[2017-07-22 06:11] LABS: ALBUMIN 1.6 g/dL (3.4-5.0); CALCIUM 8.3 mg/dL (8.5-10.1); CREATININE 1.8 mg/dL (0.6-1.3); MAGNESIUM 1.7 mg/dL (1.8-2.4); PHOSPHORUS* 4.2 mg/dL (2.5-4.9); POTASSIUM 4.2 mmol/L (3.5-5.1); TOTAL BILIRUBIN 0.3 mg/dL (<0.1-1.0); TOTAL PROTEIN 4.4 g/dL (6.4-8.2)
--- NOTE | 2017-07-22 06:54 | NUR ---
A&O X4 CALM COOPERITVE. AFIB ON THE MONITOR. PT MAX ASSIST TO COMODE. FALL PRECAUTIONS IN PLACE. VITALS WNL. HOURLY ROUNDING FOR SAFETY.
[2017-07-22 08:03] VITALS: BP 124/68
--- NOTE | 2017-07-22 10:09 | NUR ---
ASSUMED CARE OF PT THIS AM AROUND 0715- GUNITE NOZZLE OPERATOR IN PLACE ORDERED, TRACING A-FIB- UPON ASSESSMENT PT NOTED TO BE RESING IN BED- PT A&O X4- CONTINENT OF BOWEL AND BLADDER, USING BEDPAN/URINAL- Q2 HOUR TURNS IN PLACE INDICATED- CRACKLES ASSCULTATED BILATERALLY, COUGH NOTED- VSS, O2 SAT 97% ON RA- ABDOMEN SOFT/ROUND/NON-TENDER, BS X4 QUADS- PT REPORTS LAST BM 07/21/17- 1+ BLE UE/LE, WITH NOTED IMPROVMENT FROM 07/21/17 R/T LASIX ADMINISTRATION- GOOD PO INTAKE NOTED THIS AM- RUE SINGLE LUMEN PICC NOTED, DRESSING C/D/I AND FLUSHING WELL- MG THIS AM NOTED AT 1.7, 1ST DOSE MAG GIVEN AT 0921 PER PROTOCAL, WITH 2ND DOSE TO FOLLOW- BS MONITORED PRESCRIBED, INSULIN HELD THIS AM R/T 64 BS- PT RATES PAIN 4/10 T RIGHT FOOT, REPOSITION NOTED WITH LEG ELEVATION- DRESSING TO RLE INTACT WITH NO VISIBLE DRAINAGE NOTED- CALL LIGHT AND PERSONAL BELONGINGS WITH IN REACH- HOURLY ROUNDS IN PLACE R/T SAFETY/NEEDS- ALL NEEDS MET AT THIS TIME-WCTM
[2017-07-22 12:00] VITALS: BP 116/56
--- NOTE | 2017-07-22 15:20 | NUR ---
WOUND NURSE: PER PATIENT'S NURSE: PATIENT'S DRESSING WAS ALREADY CHANGED BY DR. HINES. NO INTERVENTION BY THIS NURSE A RESULT.
[2017-07-22 15:30] VITALS: BP 98/44
--- NOTE | 2017-07-22 16:26 | NUR ---
PT MARVA RESTING IN BED- PELT SHEARER CONTINUED INDICATED, TRACING A-FIB- RUE PICC NOTED INTACT, FLUSHING WELL AND SL- FAIR PO INTAKE NOTED THIS SHIFT WITH MEALS- DRESSING TO RIGHT FOOT CHANGED PER THIS SHIFT, DRESSING REMAINS C/D/I WITH NO VISIBLE DRAINGE NOTED- VANC TROUGH THIS SHIFT NOTED AT 24, CONTINUED TO BE ON HOLD WITH REDRAW SCHEDULED FOR 07/23/17 @ 1030- MG REPLACED PER PROTOCOL THIS SHIFT- REDRAW AT 1555 NOTED AT 1.6 WILL CONTINUE REPLACEMENT- BS MONITORED ORDERED, INSULIN PRESCRIBED- PT WORKING WITH THERAPIES TODAY, UP TO BED SIDE CHAIR TOLERATING WELL- NO C/O PAIN AT THIS TIME- CALL LIGHT AND PERSOANL BELONGINGS WITH IN REACH- ALL NEEDS MET AT THIS TIME-WCTM
[2017-07-22 20:10] VITALS: BP 128/53
[2017-07-23] VITALS: BP 113/55
[2017-07-23 04:00] VITALS: BP 110/56
[2017-07-23 05:41] LABS: HEMATOCRIT 23.2 % (42.0-52.0); HEMOGLOBIN 7.7 gm/dL (14.0-18.0); MCH 26.8 pg (26.0-34.0); MCV 81.1 fL (80.0-100.0); MPV 7.9 fl. (7.2-11.1); RBC 2.86 mil/uL (4.50-6.00); WBC 7.6 thou/uL (4.0-11.0)
[2017-07-23 05:43] LABS: CALCIUM 8.1 mg/dL (8.5-10.1); CREATININE 1.9 mg/dL (0.6-1.3); POTASSIUM 4.8 mmol/L (3.5-5.1)
[2017-07-23 06:31] LABS: ALBUMIN 1.8 g/dL (3.4-5.0); CALCIUM 8.2 mg/dL (8.5-10.1); CREATININE 1.9 mg/dL (0.6-1.3); MAGNESIUM 2.1 mg/dL (1.8-2.4); PHOSPHORUS* 4.4 mg/dL (2.5-4.9); POTASSIUM 4.9 mmol/L (3.5-5.1)
--- NOTE | 2017-07-23 07:46 | NUR ---
A&O X4 CALM COOPERITVE. PT IS BEDREST WITH MAX ASSIST X2 WHEN GETTING UP. PT IS AFIB ON THE MONITOR, STABLE RYTHEM. PT IS TO BE BLADDER SCANED AFTER EVERY UNINATION FOR RETENTION. PT HAS EDEMA GENERALIZED. RA. VITALS WNL. FALL PRECAUTIONS IN PLACE. HOURLY ROUNDING FOR SAFETY.
[2017-07-23 08:28] VITALS: BP 106/53
--- NOTE | 2017-07-23 11:00 | NUR ---
VSS, ASSUMED CARE IN THE AM, ASSESSMENT PERFORMED AND CHARTED, FALL PRECAUTIONS IN PLACE AND CALL LIGHT IN REACH, PT IS ON RA, A&O4 AND UP WITH ONE TO BSE, AND IS TRACING AFIB ON THE MONITOR, PT DENIES ANY PAIN AND HAS PICC AND HAS FLUSH AND DRAWS, PT GOAL IS TO D/C TO [facility], AT THIS TIME PT HAS RECIVED D/C ORDERS, PT IS IV AND TELE TAKEN OUT, PT IS TO D/C WITH RIGHT PICC LINE, FILLED OUT PT MEDICATIO SHEETS AND D/C INSTRUCTIONS, CALLED REPORT TO [facility] AND GAVE REPORT TO TAMAR AND PROVITED CALL BACK NUMBER, PT BELONGING GATHERED AND PLACED WITH PT, D/C PAPERS GIVEN TO TRANSPORTER AND PT TAKEN OUT BY WHEELCHAIR TO WHEEL CHAIR VAN, HOURLY ROUNDS COMPLETED.
[2017-07-23 11:30] VITALS: BP 115/49
[2017-07-23 12:12] VITALS: BP 106/53
--- NOTE | 2017-07-28 12:46 | CON ---
[address] [address] CONSULTATION Name: VERNON AGUILA Room: [address] IN M.R.#: [id number] Admission: 07/12/17 Attend Phys: Billy Nicole MD Discharge: 07/23/17 Date of : 41 Report #: [id number] THIS REPORT FOR: //name// CC: Billy Richard DATE OF SERVICE: 07/21/2017 CHIEF COMPLAINT: Status post right transmetatarsal amputation. Surgical pathology showed abundant osteomyelitis to the distal fourth metatarsal with a clear resection site. There is also osteomyelitis to the right great toe proximal phalange. The second and third metatarsals were negative. Tissue and bone cultures grew MRSA. He is on parenteral vancomycin. He has had increased BUN and creatinine, Nephrology consult pending. LABORATORY DATA: WBC 5.7, RBC 3.32, hemoglobin 8.8, hematocrit 27.6, platelets 307. BUN 15, creatinine 1.7, glucose 158. PHYSICAL EXAMINATION: Incisions well approximated without inflammation or cardinal signs of infection. The lateral wound is packed with Gelfoam with no active bleeding. The foot is warm with dopplerable pulses and no pallor or cyanosis. Negative Homans or Dowd sign to either extremity. IMPRESSION: Osteomyelitis, right foot, status post transmetatarsal amputation, type 2 diabetes mellitus with peripheral vascular disease. PLAN: Excisional ulcer debridement performed to the right foot to excise subcutaneous tissue and slough from the wound bed. This was an excisional surgical debridement. Bleeding was stopped with pressure. The wound was cleansed and packed with Aquacel Ag and covered with ABDs, Kerlix and Jamison. The patient to have bandages changed daily. <ELECTRONICALLY SIGNED> By: William Scales DPM 07/28/17 1246 1512 [id number] Scales DPM /nt
--- NOTE | 2017-07-28 12:46 | CON ---
[address] [address] CONSULTATION Name: VERNON AGUILA Room: [address] IN M.R.#: [id number] Admission: 07/12/17 Attend Phys: Billy Nicole MD Discharge: 07/23/17 Date of : 41 Report #: [id number] THIS REPORT FOR: //name// CC: Billy Richard DATE OF SERVICE: 07/22/2017 CHIEF COMPLAINT: Postoperative follow up for right transmetatarsal amputation for osteomyelitis with retained postoperative wound. Surgical bone and tissue cultures grew MRSA, he is on parenteral vancomycin. He has had some acute renal insufficiency. He has been afebrile, denies pain to the foot, good appetite. He has done some ambulation for short distances and transfers with physical therapy wearing a surgical shoe and using a walker. He has remained afebrile with stable vitals. LABORATORY DATA: WBC 5.3, RBC 2.96, hemoglobin 8.0, hematocrit 24.0, platelets 251. BUN 17, creatinine 1.8, glucose 88. PHYSICAL EXAMINATION: The incision is well approximated with no inflammation or cellulitis. There are strong pedal pulses with no pallor or cyanosis. The foot is warm with no acute vascular insufficiency. The open wound at the lateral aspect has no active bleeding with a mixture of granulation and slough as well as Gelfoam foam from the surgery. I can palpate the stumps of the proximal fourth and fifth metatarsals through the open wound. Lower extremity edema is decreased since yesterday, negative Homans or Dowd sign in either leg. No popliteal tenderness or adenopathy bilaterally. PLAN: Excisional ulcer debridement of the open wound with scissors and forceps to excise subcutaneous tissue and slough. This was an excisional surgical debridement. Scant bleeding achieved and stopped with pressure. The wound was cleansed and dressed with Aquacel Ag and covered with ABDs, Kerlix and Jamison wrap. I will follow the patient daily during his hospitalization. <ELECTRONICALLY SIGNED> By: William Scales DPM 07/28/17 1246 1246 [id number] Scales DPM /nt
--- NOTE | 2017-07-28 15:02 | CON ---
[address] [address] CONSULTATION Name: AGUILAVERNON MENSAH Room: [address] IN M.R.#: [id number] Admission: 07/12/17 Attend Phys: Billy Nicole MD Discharge: 07/23/17 Date of : 42 Report #: [id number] THIS REPORT FOR: //name// CC: Billy Richard NEPHROLOGY CONSULT CONSULTING PHYSICIAN: Billy Nicole MD REASON FOR CONSULTATION: Acute kidney injury. HISTORY OF PRESENT ILLNESS: This is a 76-year-old gentleman with right foot osteomyelitis and sepsis. He recently had a foot surgery with amputation of his distal metatarsal and presented to the hospital with fevers and he chills. He is currently on the antibiotic therapy. He did receive some fluid resuscitation when his creatinine bumped from 1 on 07/19/2017 to 1.7 to now 1.8. He had an elevated vancomycin level. He has no complaints at present. REVIEW OF SYSTEMS: Constitutional, psych, heme, eyes, ENT, respiratory, cardiac, GI, , endocrine, all negative except as documented above. PAST MEDICAL AND SURGICAL HISTORY: Diabetic retinopathy, hypertension, history of CHF, dyslipidemia, AFib, appendectomy, history of left lower extremity DVT in 1994. FAMILY HISTORY: Not pertinent in this 76-year-old gentleman. SOCIAL HISTORY: No tobacco. CURRENT MEDICATIONS: Reviewed. PHYSICAL EXAMINATION: VITAL SIGNS: Blood pressure 116/56, pulse 63, respirations 17, temperature 36.2. GENERAL: No acute distress. EYES: Extraocular movements intact. EARS: Externally normal. CARDIOVASCULAR: Regular rate. LUNGS: No crackles, diminished. ABDOMEN: Soft. EXTREMITIES: Lower extremities, some mild swelling. Upper extremities, positive for swelling. PSYCHIATRIC: Awake, alert. LABORATORY DATA: White cell count 5.3, hemoglobin 8, platelets 251. Sodium 137, potassium 4.2, chloride 104, bicarbonate 28, BUN of 17, creatinine 1.8, [place] [address] CONSULTATION Name: VERNON AGUILA Room: [address] IN ..#: [id number] Admission: 07/12/17 Attend Phys: Billy Nicole MD Discharge: 07/23/17 Date of : 42 Report #: [id number] glucose 88, calcium 8.3, magnesium 1.7, phosphorus 4.2, albumin is 1.6. ASSESSMENT: 1. Acute kidney injury with a creatinine of 1 on 07/19/2017 up to 1.8 on 07/22/2017 in the setting of vancomycin level of 24. UA is noted. He is nonoliguric. 2. Hypomagnesemia. 3. Right foot osteomyelitis. 4. Hypertension. 5. Diabetes. 6. Anemia. Defer to Internal Medicine. 7. Hypoalbuminemia with an albumin of 1.6. PLAN: 1. Check bladder scan. 2. Check renal ultrasound. 3. Would consider changing vancomycin to an alternative antibiotic. 4. Hold metformin. 5. Hold lisinopril. 6. Check CK. 7. Magnesium replaced. 8. No indication for aggressive diuresis at this point from my standpoint. We will follow him closely, but he may down the road need albumin and diuresis. Thank you for requesting my opinion in the care and management of this patient. <ELECTRONICALLY SIGNED> By: Riaz Dale MD 07/28/17 1502 1719 0057Abijade Paiz MD /nt
== END 2017-07-23 16:00 | DRG 853 ==
LOC: M.ERS 19:35 → M.TBA-ER 21:53 → M.2W 21:53
PROVIDERS: Emergency Medicine Emergency Medical Services; Family Medicine; Internal Medicine; Internal Medicine Nephrology; Podiatrist Foot & Ankle Surgery; ADMIT Internal Medicine
PROC: 0Y6P0Z3 Detachment at Right 1st Toe, Low, Open Approach (ICD-10-PCS; principal; 2017-07-14)
PROC: 0JBQ0ZZ Excision of Right Foot Subcutaneous Tissue and Fascia, Open Approach (ICD-10-PCS; principal; 2017-07-14)
PROC: 0HXMXZZ Transfer Right Foot Skin, External Approach (ICD-10-PCS; principal; 2017-07-14)
PROC: 0Y6T0Z3 Detachment at Right 3rd Toe, Low, Open Approach (ICD-10-PCS; principal; 2017-07-14)
PROC: 0Y6R0Z3 Detachment at Right 2nd Toe, Low, Open Approach (ICD-10-PCS; principal; 2017-07-14)
PROC: 0Y6V0Z3 Detachment at Right 4th Toe, Low, Open Approach (ICD-10-PCS; principal; 2017-07-14)
PROC: 02HV33Z Insertion of Infusion Device into Superior Vena Cava, Percutaneous Approach (ICD-10-PCS; 2017-07-16)
PROC: 30233N1 Transfusion of Nonautologous Red Blood Cells into Peripheral Vein, Percutaneous Approach (ICD-10-PCS; 2017-07-19)
DX: A41.9 Sepsis, unspecified organism (principal); E43 Unspecified severe protein-calorie malnutrition; M86.9 Osteomyelitis, unspecified; I42.9 Cardiomyopathy, unspecified; R65.20 Severe sepsis without septic shock; I50.9 Heart failure, unspecified; E78.5 Hyperlipidemia, unspecified; I48.91 Unspecified atrial fibrillation; E11.319 Type 2 diabetes mellitus with unspecified diabetic retinopathy without macular edema; E11.42 Type 2 diabetes mellitus with diabetic polyneuropathy; E11.51 Type 2 diabetes mellitus with diabetic peripheral angiopathy without gangrene; E83.42 Hypomagnesemia; E11.69 Type 2 diabetes mellitus with other specified complication; E87.6 Hypokalemia; D64.9 Anemia, unspecified; I11.0 Hypertensive heart disease with heart failure; E88.09 Other disorders of plasma-protein metabolism, not elsewhere classified; L97.519 Non-pressure chronic ulcer of other part of right foot with unspecified severity; Z79.82 Long term (current) use of aspirin; Z86.718 Personal history of other venous thrombosis and embolism; Z90.49 Acquired absence of other specified parts of digestive tract; Z88.8 Allergy status to other drugs, medicaments and biological substances; Z68.26 Body mass index [BMI] 26.0-26.9, adult

== ENCOUNTER → 2017-07-28 | Outpatient (CLI) | payer MEDICARE ==
[~2017-07-28] MED LIST changes: +AUGMENTIN 500-1 EACH PO; +COLACE100 MG PO; +DICLOFENAC OPHTHALMIC; +ELIQUIS5 MG PO; +FERROUS GLUCON324 M2 PO; +FLORANEX TABLE1 EACH PO; +GLUCOPHAGE XR500 M1 PO; +LANTUS100 UNIT/M SUBQ; +NEURONTIN 300300 M1 PO; +NOVOLOG100 UNIT/1 SUBQ; +SENNA8.6 MG PO; +TRAMADOL 50 MG50 MG PO; +TYLENOL325 MG PO; +VERAPAMIL E.R240 M1 PO; +VITAMIN B-12500 MCG PO; +VITAMIN D1000 UNI2 PO
--- NOTE | 2017-07-29 13:59 | CON ---
[address] [address] CONSULTATION Name: VERNON AGUILA MAKENNA Room: [facility] Manish#: [id number] Admission: 07/28/17 Attend Phys: William Scales DPM Discharge: Date of : 42 Report #: [id number] THIS REPORT FOR: //name// CC: William Richard DATE OF SERVICE: 07/28/2017 ATTENDING PHYSICIAN: William Scales DPM He was evaluated in the outpatient wound care center. The patient returns today in followup, having been hospitalized and underwent right lateral foot surgery osteoectomy for chronic osteomyelitis. He states he generally has been feeling fairly well, it is unclear how much ambulating he is doing. Denies systemic illness. He has completed roughly 2 weeks of parenteral therapy for a planned 6-week course. On evaluation, the wound appears to be somewhat boggy; however, post-debridement, it had improved appearance. There is some concern ongoing about perfusion to the site heal. Chronic osteomyelitis. At this point, we would continue the antibiotics as prescribed. We will get weekly labs. We will see him back in 2 weeks. <ELECTRONICALLY SIGNED> By: Kevin Brand MD 07/29/17 1359 0653 [id number] Brand MD /nt
== END ==
LOC: M.WC 01:28
DX: E11.621 Type 2 diabetes mellitus with foot ulcer (principal); L97.511 Non-pressure chronic ulcer of other part of right foot limited to breakdown of skin; I48.91 Unspecified atrial fibrillation; E11.69 Type 2 diabetes mellitus with other specified complication; M86.68 Other chronic osteomyelitis, other site; Z87.891 Personal history of nicotine dependence

== ENCOUNTER → 2017-08-04 | Outpatient (CLI) | payer MEDICARE | LOC: M.WC 02:58 | DX: E11.622 Type 2 diabetes mellitus with other skin ulcer (principal); L97.821 Non-pressure chronic ulcer of other part of left lower leg limited to breakdown of skin; E11.621 Type 2 diabetes mellitus with foot ulcer; L97.511 Non-pressure chronic ulcer of other part of right foot limited to breakdown of skin; L89.893 Pressure ulcer of other site, stage 3; E11.51 Type 2 diabetes mellitus with diabetic peripheral angiopathy without gangrene; E11.69 Type 2 diabetes mellitus with other specified complication; M86.8X7 Other osteomyelitis, ankle and foot; I10 Essential (primary) hypertension; I48.91 Unspecified atrial fibrillation; Z87.891 Personal history of nicotine dependence ==

== ENCOUNTER → 2017-08-11 | Outpatient (CLI) | payer MEDICARE ==
--- NOTE | 2017-08-12 12:55 | CON ---
[address] [address] CONSULTATION Name: VERNON AGUILA MAKENNA Room: [facility] Patrick.#: [id number] Admission: 08/11/17 Attend Phys: William Scales DPM Discharge: Date of : 42 Report #: [id number] THIS REPORT FOR: //name// CC: William Sloan DATE OF SERVICE: 08/11/2017 ATTENDING PHYSICIAN: Dr. William Scales. LOCATION: Seen in [facility] as an outpatient. REASON FOR EVALUATION: Chronic ulceration. HISTORY OF PRESENT ILLNESS: He is post osteoectomy, right foot osteomyelitis. He has generally been doing fairly well. He denies significant localizing signs or symptoms. He has not been systemically ill. He has completed 4 weeks of parenteral therapy of a planned 6 weeks course. ASSESSMENT AND PLAN: Chronic osteomyelitis. At this point, would maintain the current approach, wound care as described by Dr. Scales. He is going to have Vascular Surgery reevaluate the wound to evaluate whether there is adequate perfusion to the distal transmetatarsal site, although he was able to make him bleed fairly well. We will see him in 2 weeks. <ELECTRONICALLY SIGNED> By: Kevin Brand MD 08/12/17 1255 0730 [id number] Brand MD /nt
== END ==
LOC: M.WC 01:46
DX: E11.621 Type 2 diabetes mellitus with foot ulcer (principal); L97.511 Non-pressure chronic ulcer of other part of right foot limited to breakdown of skin; E11.622 Type 2 diabetes mellitus with other skin ulcer; L97.821 Non-pressure chronic ulcer of other part of left lower leg limited to breakdown of skin; E11.51 Type 2 diabetes mellitus with diabetic peripheral angiopathy without gangrene; L89.893 Pressure ulcer of other site, stage 3; E11.69 Type 2 diabetes mellitus with other specified complication; M86.8X7 Other osteomyelitis, ankle and foot; I10 Essential (primary) hypertension; I48.91 Unspecified atrial fibrillation; Z87.891 Personal history of nicotine dependence

== ENCOUNTER → 2017-08-18 | Outpatient (CLI) | payer MEDICARE | LOC: M.WC 01:37 | DX: E11.621 Type 2 diabetes mellitus with foot ulcer (principal); L97.511 Non-pressure chronic ulcer of other part of right foot limited to breakdown of skin; E11.622 Type 2 diabetes mellitus with other skin ulcer; I70.235 Atherosclerosis of native arteries of right leg with ulceration of other part of foot; I87.2 Venous insufficiency (chronic) (peripheral); L97.821 Non-pressure chronic ulcer of other part of left lower leg limited to breakdown of skin; E11.40 Type 2 diabetes mellitus with diabetic neuropathy, unspecified; L89.893 Pressure ulcer of other site, stage 3; E11.51 Type 2 diabetes mellitus with diabetic peripheral angiopathy without gangrene; E11.69 Type 2 diabetes mellitus with other specified complication; M86.8X7 Other osteomyelitis, ankle and foot; I48.91 Unspecified atrial fibrillation; I10 Essential (primary) hypertension; Z87.891 Personal history of nicotine dependence ==

== ENCOUNTER → 2017-08-25 | Outpatient (CLI) | payer MEDICARE ==
--- NOTE | 2017-08-26 11:33 | CON ---
[address] [address] CONSULTATION Name: VERNON AGUILA Room: [facility] NIHARIKA Hammond#: [id number] Admission: 08/25/17 Attend Phys: William Scales DPM Discharge: Date of : 42 Report #: [id number] THIS REPORT FOR: //name// CC: William Sloan DATE OF SERVICE: 08/25/2017 ATTENDING PHYSICIAN: Dr. William Scales. HISTORY OF PRESENT ILLNESS: The patient returns today in followup, having completed 6 weeks of parenteral therapy for osteomyelitis involving his right foot transmetatarsal amputation. He does have an open wound at this point, apparently seen by Vascular Surgery who recultured him last week, distinction from previous MRSA. He is now growing Enterobacter, is fairly susceptible with exception of ampicillin related antibiotics. On questioning, he states he feels fairly well. He has not had significant systemic illness. On examination of the wound, it appears to be somewhat moist. There is some mild degree of inflammation noted. There has not been a significant amount of healing over the course of the last couple of weeks. Chronic osteomyelitis. At this point, I think it is reasonable to discontinue the vancomycin for the MRSA. We will extend antibiotics utilizing ceftriaxone. He is in a facility for an additional week. He is to follow up with Dr. Ford, who is to perform an angiography and possible stenting if there is notable lesion. Continue wound care as described by Dr. Scales, will see him back in 1 week. <ELECTRONICALLY SIGNED> By: Kevin Brand MD 08/26/17 1133 0656 [id number] Brand MD /nt
== END ==
LOC: M.WC 03:30
DX: E11.621 Type 2 diabetes mellitus with foot ulcer (principal); L97.511 Non-pressure chronic ulcer of other part of right foot limited to breakdown of skin; E11.51 Type 2 diabetes mellitus with diabetic peripheral angiopathy without gangrene; E11.40 Type 2 diabetes mellitus with diabetic neuropathy, unspecified; E11.69 Type 2 diabetes mellitus with other specified complication; M86.8X7 Other osteomyelitis, ankle and foot; I10 Essential (primary) hypertension; I48.91 Unspecified atrial fibrillation; Z87.891 Personal history of nicotine dependence

== ENCOUNTER → 2017-09-01 | Outpatient (CLI) | payer MEDICARE ==
--- NOTE | 2017-09-02 11:47 | CON ---
[address] [address] CONSULTATION Name: VERNON AGUILA Room: [facility] Patrick.#: [id number] Admission: 09/01/17 Attend Phys: William Scales DPM Discharge: Date of : 42 Report #: [id number] THIS REPORT FOR: //name// CC: William Sloan DATE OF SERVICE: 09/01/2017 INFECTIOUS DISEASE FOLLOWUP ATTENDING PHYSICIAN: Dr. William Scales. The patient returns in followup of ongoing treatment for large dehiscence involving the right transmetatarsal amputation site due to chronic osteomyelitis to complete extended course of antimicrobial therapy. Followup culture with a different organism course last week, he received parenteral ceftriaxone, previously been on vancomycin for MRSA. He generally feels okay. Denies significant pain or discomfort associated with the foot. He has not had systemic illness including fevers. Appetite has been generally good. On examination, it was confirmed by Dr. Scales there is not exposed bone at this point. There is moderate degree of debris and devitalized tissue that was removed surgically. ASSESSMENT AND PLAN: Chronic osteomyelitis. At this point, it is reasonable to discontinue the antibiotics. He is scheduled to follow up with vascular surgery. There is a concern about possible compromising vasculopathy, may be amenable to intervention such as an arterial stenting. We will see him in followup in 2 weeks. Maintain the PICC line in the interim, monitor expectantly. <ELECTRONICALLY SIGNED> By: Kevin Brand MD 09/02/17 1147 2055 [id number] Brand MD /nt
== END ==
LOC: M.WC 04:49
DX: E11.621 Type 2 diabetes mellitus with foot ulcer (principal); I70.235 Atherosclerosis of native arteries of right leg with ulceration of other part of foot; L97.511 Non-pressure chronic ulcer of other part of right foot limited to breakdown of skin; E11.40 Type 2 diabetes mellitus with diabetic neuropathy, unspecified; E11.69 Type 2 diabetes mellitus with other specified complication; M86.8X7 Other osteomyelitis, ankle and foot; I10 Essential (primary) hypertension; I48.91 Unspecified atrial fibrillation; Z87.891 Personal history of nicotine dependence

== ENCOUNTER → 2017-09-03 | Outpatient (CLI) | payer MEDICARE ==
--- NOTE | 2017-09-02 14:46 | NUR ---
TALITA was asked to assist in getting Pt transportation for Pt to his procedure tomorrow. CM contacted Pt's skilled facility, Chelsy [facility]tega, staff at [facility] will transport Pt in the morning. Pt needs to arrive at 7am, for his procedure at 830am. Updated Pt's dtr, Lorena.
[~2017-09-03] VITALS: Ht 177.8 cm; Wt 74.8 kg
[2017-09-03 07:42] VITALS: BP 164/65
[2017-09-03 07:43] LABS: HEMATOCRIT 24.3 % (42.0-52.0); HEMOGLOBIN 7.8 gm/dL (14.0-18.0); MCH 26.5 pg (26.0-34.0); MCHC 32.2 g/dL (28.0-37.0); MCV 82.4 fL (80.0-100.0); MPV 7.2 fl. (7.2-11.1); RBC 2.95 mil/uL (4.50-6.00); RDW-CV 19.1 % (10.5-14.5); WBC 3.7 thou/uL (4.0-11.0)
[2017-09-03 07:53] LABS: CALCIUM 8.5 mg/dL (8.5-10.1); CREATININE 0.9 mg/dL (0.6-1.3); POTASSIUM 3.4 mmol/L (3.5-5.1)
[2017-09-03 07:56] LABS: APTT 28.5 Seconds (25.0-31.3); INR 1.3; PROTIME 12.6 Seconds (9.20-11.50)
[2017-09-03 07:57] LABS: ALBUMIN 3.1 g/dL (3.4-5.0); TOTAL BILIRUBIN 0.6 mg/dL (<0.1-1.0); TOTAL PROTEIN 5.9 g/dL (6.4-8.2)
[2017-09-03 16:08] VITALS: BP 171/68
--- NOTE | 2017-09-11 14:18 | OP ---
[facility] [address] [place] [address] OPERATIVE REPORT Name: VERNON AGUILA Room: [facility].#: [id number] Admission: 09/03/17 Attend Phys: Jer Turner Discharge: Date of : 42 Report #: [id number] THIS REPORT FOR: //name// CC: Eric Sloan DATE OF SERVICE: 09/03/2017 PREOPERATIVE DIAGNOSIS: Peripheral vascular disease with ulcers, right lower extremity. POSTOPERATIVE DIAGNOSIS: Peripheral vascular disease with ulcers, right lower extremity. SURGEON: Erci Ford DO DIRECTOR BANKING: None. PROCEDURES: 1. CO2 assisted diagnostic angiography bilaterally. 2. Catheter directed angiogram, right lower extremity, catheter position third order. 3. Angio-Seal closure, left common femoral artery. INDICATIONS FOR THE PROCEDURE AND CONSENT: The patient is a patient of Dr. Scales, who is status post right transmetatarsal amputation with difficult to heal wounds. The patient has noncompressible ABIs and history of renal insufficiency. Recommendation for diagnostic CO2 angiography was made. Risks and benefits were discussed including infection, bleeding, need for use of some contrast-induced nephropathy. The patient wished to proceed, was consented and scheduled. PROCEDURE IN DETAIL: After timeout was performed, the patient was placed in supine position with sterile prep and drape of the anterior abdomen, bilateral groins, bilateral thighs. Ultrasound was utilized to identify the left common femoral artery and Seldinger technique used to place a 6-Kyrgyz sheath. Glidewire Advantage and UF catheter were advanced into the infrarenal aorta and a CO2 angiogram performed. This demonstrated the aorta, bilateral common, internal and external iliac arteries to be patent without flow limitation or stenosis. In general throughout the test, blood flow was sluggish and weakly pulsatile. This appeared to be due to cardiac output issues or may be associated with CO2 technique. The Glidewire Advantage and UF catheter were then retracted in the aortogram position and then bilateral femoral and proximal thigh angiography was performed. This demonstrated the bilateral common femorals, superficial femoral and profunda vessels to be widely patent without flow limitation or stenosis bilaterally. The Glidewire [place] [address] OPERATIVE REPORT Name: VERNON AGUILA [id number] Admission: 09/03/17 Attend Phys: Jer Turner Discharge: Date of : 41 Report #: [id number] catheter were then advanced into the right superficial femoral artery under fluoroscopic guidance for improved imaging of the right lower extremity. This demonstrated the right mid to distal superficial femoral artery to be widely patent without flow limitation as well as the popliteal artery. There was a visualized anterior tibial, posterior tibial and peroneal vessels below the knee, which all appeared widely patent without flow limitation. There was heavy calcification throughout the vessels bilaterally. I was unable to visualize the distal tibial vessels well with CO2 and so I did use a small 20% contrast injection for the distal tibials and pedal flow. This did demonstrate diminutive flow on the foot, but the anterior tibial, posterior tibial and peroneal vessels appeared grossly patent to the ankle. I then retracted the Glidewire Advantage and UF catheter to the left external iliac artery and Glidewire Advantage was renegotiated into the aorta. The UF catheter was removed and a CO2 angiogram performed through the sheath of the left lower extremity. This demonstrated the left superficial femoral artery and popliteal arteries to be widely patent without flow limitation or stenosis. There was again calcified disease. The anterior tibial, posterior tibial and peroneal vessels were visualized and noted to be patent proximally, although again flow was sluggish with some limited viewing of the vessels. I then obtained a 6-Kyrgyz Angio-Seal and deployed this in a standard fashion with closure device since no intervention was required. The patient tolerated the procedure well. Lap, needle and instrument counts were correct. The patient was transferred to recovery in stable and extubated condition. <ELECTRONICALLY SIGNED> By: Eric Ford DO 09/11/17 1418 1742 [id number] Ford DO /nt
== END | disposition home or self-care (01) ==
LOC: M.INT 07:01
PROVIDERS: Surgery
DX: I70.25 Atherosclerosis of native arteries of other extremities with ulceration (principal); I11.0 Hypertensive heart disease with heart failure; I50.9 Heart failure, unspecified; E11.9 Type 2 diabetes mellitus without complications; E78.5 Hyperlipidemia, unspecified; I48.91 Unspecified atrial fibrillation; Z86.718 Personal history of other venous thrombosis and embolism; Z98.890 Other specified postprocedural states; Z79.899 Other long term (current) drug therapy; Z88.8 Allergy status to other drugs, medicaments and biological substances; Z79.82 Long term (current) use of aspirin; Z79.4 Long term (current) use of insulin

== ENCOUNTER → 2017-09-08 | Outpatient (CLI) | payer MEDICARE | LOC: M.WC 01:57 | DX: E11.621 Type 2 diabetes mellitus with foot ulcer (principal); L97.511 Non-pressure chronic ulcer of other part of right foot limited to breakdown of skin; L89.893 Pressure ulcer of other site, stage 3; E11.40 Type 2 diabetes mellitus with diabetic neuropathy, unspecified; E11.51 Type 2 diabetes mellitus with diabetic peripheral angiopathy without gangrene; I10 Essential (primary) hypertension; I48.91 Unspecified atrial fibrillation; E11.69 Type 2 diabetes mellitus with other specified complication; M86.8X7 Other osteomyelitis, ankle and foot; Z87.891 Personal history of nicotine dependence ==

== ENCOUNTER → 2017-09-15 | Outpatient (CLI) | payer MEDICARE ==
--- NOTE | 2017-09-16 13:08 | CON ---
[address] [address] CONSULTATION Name: VERNON AGUILA Room: [facility] NIHARIKA Hammond#: [id number] Admission: 09/15/17 Attend Phys: William Scales DPM Discharge: Date of : 41 Report #: [id number] THIS REPORT FOR: //name// CC: William Sloan DATE OF SERVICE: 09/15/2017 REASON FOR FOLLOWUP: Post right great toe transmetatarsal amputation due to chronic osteomyelitis. He underwent the surgery in the latter part of June, completed 6 weeks of parenteral therapy, has actually been off antibiotics for the last couple of weeks. He has been clinically stable over the course of that point of evaluation. PHYSICAL EXAMINATION: The site appears to be healing satisfactorily. There is evidence of the previous incisional dehiscence. Lateral aspect of the foot has an area of pressure related necrosis. Dr. Scales did debride this. There was no evidence of purulence. He was able to confirm overall improvement of the wound. ASSESSMENT AND PLAN: Chronic osteomyelitis. At this point, he has completed a course of therapy. I do not think there is any necessity based on current findings to extend that. We will see as needed. <ELECTRONICALLY SIGNED> By: Kevin Brand MD 09/16/17 1308 2036 [id number] Brand MD /nt
== END ==
LOC: M.WC 02:06
DX: E11.621 Type 2 diabetes mellitus with foot ulcer (principal); L97.511 Non-pressure chronic ulcer of other part of right foot limited to breakdown of skin; L89.893 Pressure ulcer of other site, stage 3; E11.40 Type 2 diabetes mellitus with diabetic neuropathy, unspecified; E11.51 Type 2 diabetes mellitus with diabetic peripheral angiopathy without gangrene; E11.69 Type 2 diabetes mellitus with other specified complication; M86.8X7 Other osteomyelitis, ankle and foot; I10 Essential (primary) hypertension; I48.91 Unspecified atrial fibrillation; Z87.891 Personal history of nicotine dependence

== ENCOUNTER → 2017-09-22 | Outpatient (CLI) | payer MEDICARE | LOC: M.WC 14:00 | DX: E11.621 Type 2 diabetes mellitus with foot ulcer (principal); L97.511 Non-pressure chronic ulcer of other part of right foot limited to breakdown of skin; L89.893 Pressure ulcer of other site, stage 3; E11.40 Type 2 diabetes mellitus with diabetic neuropathy, unspecified; E11.51 Type 2 diabetes mellitus with diabetic peripheral angiopathy without gangrene; E11.69 Type 2 diabetes mellitus with other specified complication; M86.8X7 Other osteomyelitis, ankle and foot; I10 Essential (primary) hypertension; I48.91 Unspecified atrial fibrillation; Z87.891 Personal history of nicotine dependence ==

== ENCOUNTER → 2017-09-29 | Outpatient (CLI) | payer MEDICARE | LOC: M.WC 01:42 | DX: E11.621 Type 2 diabetes mellitus with foot ulcer (principal); L97.511 Non-pressure chronic ulcer of other part of right foot limited to breakdown of skin; L89.893 Pressure ulcer of other site, stage 3; E11.40 Type 2 diabetes mellitus with diabetic neuropathy, unspecified; E11.51 Type 2 diabetes mellitus with diabetic peripheral angiopathy without gangrene; E11.69 Type 2 diabetes mellitus with other specified complication; M86.8X7 Other osteomyelitis, ankle and foot; I10 Essential (primary) hypertension; I48.91 Unspecified atrial fibrillation; Z87.891 Personal history of nicotine dependence ==

== ENCOUNTER → 2017-10-06 | Outpatient (CLI) | payer MEDICARE ==
--- NOTE | 2017-10-07 12:58 | CON ---
[address] [address] CONSULTATION Name: VERNON AGUILA MAKENNA Room: [facility] NIHARIKA Nguyen.#: [id number] Admission: 10/06/17 Attend Phys: William Scales DPM Discharge: Date of : 41 Report #: [id number] THIS REPORT FOR: //name// CC: William Sloan DATE OF SERVICE: 10/06/2017 ATTENDING PHYSICIAN:. William Scales DPM. HISTORY OF PRESENT ILLNESS: He is here for ongoing treatment for right foot wounds. amputation. He is scheduled to see him in followup. However, noted to have a necrotic type eschar over the lateral aspect of his foot. This is pressure related perhaps to foot where there is a new wound. There is a moderate degree of inflammation noted on examination. There is odor and some purulent type material. Based on that appearance, despite the fact that the remainder of the foot looks improved, Dr. Scales did do a fairly aggressive debridement, removed an eschar and did get a culture for me. The patient states he has generally not been feeling systemically ill. No fevers. Appetite has been good. Lateral foot wound. At this point, there is no evidence of exposed bone or deep infection. We will await culture results. I think it is reasonable to start him on empiric therapy. We will start Augmentin. He had had Staph aureus as well as Enterobacter in the last few months. With the malodor, I would be worried about a polymicrobial, perhaps anaerobic component. We will adjust therapy as needed. Continue wound care as prescribed. We will see him in 1 week. <ELECTRONICALLY SIGNED> By: Kevin Brand MD 10/07/17 1258 0839 [id number] Brand MD /nt
== END ==
LOC: M.WC 02:51
DX: E11.621 Type 2 diabetes mellitus with foot ulcer (principal); L97.511 Non-pressure chronic ulcer of other part of right foot limited to breakdown of skin; I70.235 Atherosclerosis of native arteries of right leg with ulceration of other part of foot; E11.40 Type 2 diabetes mellitus with diabetic neuropathy, unspecified; E11.51 Type 2 diabetes mellitus with diabetic peripheral angiopathy without gangrene; E11.69 Type 2 diabetes mellitus with other specified complication; M86.8X7 Other osteomyelitis, ankle and foot; I10 Essential (primary) hypertension; I48.91 Unspecified atrial fibrillation; Z87.891 Personal history of nicotine dependence

== ENCOUNTER → 2017-10-13 | Outpatient (CLI) | payer MEDICARE ==
--- NOTE | 2017-10-14 13:06 | CON ---
[address] [address] CONSULTATION Name: VERNON AGUILA Room: [facility] Patrick.#: [id number] Admission: 10/13/17 Attend Phys: William Scales DPM Discharge: Date of : 41 Report #: [id number] THIS REPORT FOR: //name// CC: William Sloan DATE OF SERVICE: 10/13/2017 INFECTIOUS DISEASE CONSULTATION AND FOLLOWUP ATTENDING PHYSICIAN: William Scales DPM REASON FOR EVALUATION: Chronic ulcer complicated by polymicrobial infection involving the lateral aspect of his right foot overlying the fifth metatarsophalangeal site. He is post toes amputation. This is a secondary pressure related wound. HISTORY OF PRESENT ILLNESS: The patient returns today in followup. He is still having significant pain associated with the new site at the lateral aspect. He has not had fevers. His appetite has been somewhat variable. He was just started on the antibiotics within the last day. Although he was empirically placed on Augmentin, yet culture confirmed MRSA as well as Enterobacter. He was switched to minocycline based on susceptibilities. On inspection, notes that the previous operative site is healing well, it has clearly decreased dimensions, does have persistent necrosis involving the subcutaneous tissue and perhaps deeper over the lateral aspect overlying the fifth metatarsophalangeal joint. Dr. Scales did debride the site and it had good bleeding. ASSESSMENT AND PLAN: Deep infection involving the foot. Again, we will continue the systemic antimicrobials at this point. Wound care as prescribed. He is going to get an x-ray for followup evaluation. Continue wound care, offloading, optimize nutritional status. <ELECTRONICALLY SIGNED> By: Kevin Brand MD 10/14/17 1306 1438 1616Josocrates Brand MD /nt
== END ==
LOC: M.WC 03:07
DX: E11.621 Type 2 diabetes mellitus with foot ulcer (principal); L97.511 Non-pressure chronic ulcer of other part of right foot limited to breakdown of skin; I70.235 Atherosclerosis of native arteries of right leg with ulceration of other part of foot; E11.40 Type 2 diabetes mellitus with diabetic neuropathy, unspecified; L89.893 Pressure ulcer of other site, stage 3; E11.51 Type 2 diabetes mellitus with diabetic peripheral angiopathy without gangrene; M86.8X7 Other osteomyelitis, ankle and foot; I48.91 Unspecified atrial fibrillation; I10 Essential (primary) hypertension; Z87.891 Personal history of nicotine dependence

== ENCOUNTER → 2017-10-18 | Outpatient (CLI) | payer MEDICARE | LOC: M.RAD 13:30 | DX: E11.621 Type 2 diabetes mellitus with foot ulcer (principal); L97.519 Non-pressure chronic ulcer of other part of right foot with unspecified severity ==

== ENCOUNTER → 2017-10-20 | Outpatient (CLI) | payer MEDICARE ==
--- NOTE | 2017-10-21 11:14 | CON ---
[address] [address] CONSULTATION Name: AYLAVERNON MENSAH Room: [facility] Patrick.#: [id number] Admission: 10/20/17 Attend Phys: William Scales DPM Discharge: Date of : 41 Report #: [id number] THIS REPORT FOR: //name// CC: William Sloan DATE OF SERVICE: 10/20/2017 ATTENDING PHYSICIAN: William Scales DPM HISTORY OF PRESENT ILLNESS: He is here for followup deep infection involving his right foot. He has actually completed a course of therapy for chronic osteomyelitis. This has led to a transmetatarsal amputation, developed pressure related injury with ulcer. This is complicated by polymicrobial infection including MRSA and Enterobacter. He has been on minocycline for the last 2 weeks. Clinically, he has improved. He notes that his pain is overall less with direct pressure to the site. On examination, he still has a moderate degree of devitalized tissue, this is pending debridement by Dr. Scales. Overall degree of inflammation is less. Question denies any particular systemic illness, no fevers. Appetite has been good. Wound, result of pressure induced ischemia with infarct. We will continue minocycline at least 1 additional week. Wound care per Dr. Scales. Continue offloading. Optimize his nutritional status. <ELECTRONICALLY SIGNED> By: Kevin Brand MD 10/21/17 1114 [id number] Brand MD /brandi
== END ==
LOC: M.WC 04:31
DX: E11.621 Type 2 diabetes mellitus with foot ulcer (principal); L97.511 Non-pressure chronic ulcer of other part of right foot limited to breakdown of skin; L89.893 Pressure ulcer of other site, stage 3; E11.51 Type 2 diabetes mellitus with diabetic peripheral angiopathy without gangrene; E11.40 Type 2 diabetes mellitus with diabetic neuropathy, unspecified; E11.69 Type 2 diabetes mellitus with other specified complication; M86.8X7 Other osteomyelitis, ankle and foot; I10 Essential (primary) hypertension; I48.91 Unspecified atrial fibrillation; Z87.891 Personal history of nicotine dependence

== ENCOUNTER → 2017-10-27 | Outpatient (CLI) | payer MEDICARE ==
--- NOTE | 2017-10-28 12:18 | CON ---
[address] [address] CONSULTATION Name: VERNON AGUILA MAKENNA Room: [facility] MSarai.#: [id number] Admission: 10/27/17 Attend Phys: William Scales DPM Discharge: Date of : 41 Report #: [id number] THIS REPORT FOR: //name// CC: William Sloan DATE OF SERVICE: 10/27/2017 INFECTIOUS DISEASE FOLLOWUP ATTENDING PHYSICIAN: William Scales DPM. HISTORY OF PRESENT ILLNESS: Here for followup right lateral foot pressure-induced wound in the setting of a transmetatarsal amputation due to multifocal osteomyelitis. The patient returns today in followup. He is generally feeling well. He denies any systemic illness. PHYSICAL EXAMINATION: On examination, the lateral wound overlying the fifth metatarsophalangeal joint showed improvement. There was an increase of healthy tissue. There was much less devitalized tissue. The overall degree of inflammation was decreased. There was no exposed bone. Transmetatarsal site continues to heal as well. ASSESSMENT AND PLAN: Deep foot infection. We well, at this point, discontinue the antibiotics and observe. Continue wound care per Dr. Scales. We will be available as needed. <ELECTRONICALLY SIGNED> By: Kevin Brand MD 10/28/17 1218 1450 0016Josejoanna Brand MD /nt
== END ==
LOC: M.WC 02:55
DX: E11.621 Type 2 diabetes mellitus with foot ulcer (principal); I70.235 Atherosclerosis of native arteries of right leg with ulceration of other part of foot; L97.511 Non-pressure chronic ulcer of other part of right foot limited to breakdown of skin; E11.40 Type 2 diabetes mellitus with diabetic neuropathy, unspecified; E11.51 Type 2 diabetes mellitus with diabetic peripheral angiopathy without gangrene; E11.69 Type 2 diabetes mellitus with other specified complication; M86.8X8 Other osteomyelitis, other site; I10 Essential (primary) hypertension; I48.91 Unspecified atrial fibrillation; Z87.891 Personal history of nicotine dependence

== ENCOUNTER → 2017-11-03 | Outpatient (CLI) | payer MEDICARE | LOC: M.WC 01:49 | DX: E11.621 Type 2 diabetes mellitus with foot ulcer (principal); L97.511 Non-pressure chronic ulcer of other part of right foot limited to breakdown of skin; L89.893 Pressure ulcer of other site, stage 3; I70.235 Atherosclerosis of native arteries of right leg with ulceration of other part of foot; E11.40 Type 2 diabetes mellitus with diabetic neuropathy, unspecified; E11.51 Type 2 diabetes mellitus with diabetic peripheral angiopathy without gangrene; E11.69 Type 2 diabetes mellitus with other specified complication; M86.8X7 Other osteomyelitis, ankle and foot; I10 Essential (primary) hypertension; I48.91 Unspecified atrial fibrillation; Z87.891 Personal history of nicotine dependence ==

== ENCOUNTER → 2017-11-10 | Outpatient (CLI) | payer MEDICARE | LOC: M.WC 03:41 | DX: E11.621 Type 2 diabetes mellitus with foot ulcer (principal); I70.235 Atherosclerosis of native arteries of right leg with ulceration of other part of foot; L97.511 Non-pressure chronic ulcer of other part of right foot limited to breakdown of skin; E11.40 Type 2 diabetes mellitus with diabetic neuropathy, unspecified; L89.893 Pressure ulcer of other site, stage 3; E11.69 Type 2 diabetes mellitus with other specified complication; M86.8X7 Other osteomyelitis, ankle and foot; I48.91 Unspecified atrial fibrillation; Z87.891 Personal history of nicotine dependence ==

== ENCOUNTER → 2017-11-17 | Outpatient (CLI) | payer MEDICARE | LOC: M.WC 04:10 | DX: E11.621 Type 2 diabetes mellitus with foot ulcer (principal); L97.511 Non-pressure chronic ulcer of other part of right foot limited to breakdown of skin; L89.893 Pressure ulcer of other site, stage 3; E11.40 Type 2 diabetes mellitus with diabetic neuropathy, unspecified; E11.51 Type 2 diabetes mellitus with diabetic peripheral angiopathy without gangrene; E11.69 Type 2 diabetes mellitus with other specified complication; M86.8X7 Other osteomyelitis, ankle and foot; I10 Essential (primary) hypertension; I48.91 Unspecified atrial fibrillation; Z87.891 Personal history of nicotine dependence ==

== ENCOUNTER → 2017-11-24 | Outpatient (CLI) | payer MEDICARE | LOC: M.WC 04:15 | DX: E11.621 Type 2 diabetes mellitus with foot ulcer (principal); L89.893 Pressure ulcer of other site, stage 3; E11.40 Type 2 diabetes mellitus with diabetic neuropathy, unspecified; E11.51 Type 2 diabetes mellitus with diabetic peripheral angiopathy without gangrene; L97.511 Non-pressure chronic ulcer of other part of right foot limited to breakdown of skin; I10 Essential (primary) hypertension; I48.91 Unspecified atrial fibrillation; Z87.891 Personal history of nicotine dependence ==

== ENCOUNTER → 2017-12-01 | Outpatient (CLI) | payer MEDICARE | LOC: M.WC 03:37 | DX: E11.621 Type 2 diabetes mellitus with foot ulcer (principal); L97.521 Non-pressure chronic ulcer of other part of left foot limited to breakdown of skin; E11.40 Type 2 diabetes mellitus with diabetic neuropathy, unspecified; I10 Essential (primary) hypertension; I48.91 Unspecified atrial fibrillation; E11.69 Type 2 diabetes mellitus with other specified complication; M86.8X7 Other osteomyelitis, ankle and foot; Z87.891 Personal history of nicotine dependence ==

== ENCOUNTER → 2017-12-08 | Outpatient (CLI) | payer MEDICARE | LOC: M.WC 00:43 | DX: E11.621 Type 2 diabetes mellitus with foot ulcer (principal); L97.511 Non-pressure chronic ulcer of other part of right foot limited to breakdown of skin; E11.40 Type 2 diabetes mellitus with diabetic neuropathy, unspecified; E11.51 Type 2 diabetes mellitus with diabetic peripheral angiopathy without gangrene; E11.36 Type 2 diabetes mellitus with diabetic cataract; M86.8X7 Other osteomyelitis, ankle and foot; I10 Essential (primary) hypertension; I48.91 Unspecified atrial fibrillation; Z87.891 Personal history of nicotine dependence ==

== ENCOUNTER → 2017-12-15 | Outpatient (CLI) | payer MEDICARE | LOC: M.WC 04:10 | DX: E11.621 Type 2 diabetes mellitus with foot ulcer (principal); L97.511 Non-pressure chronic ulcer of other part of right foot limited to breakdown of skin; L89.893 Pressure ulcer of other site, stage 3; E11.40 Type 2 diabetes mellitus with diabetic neuropathy, unspecified; E11.51 Type 2 diabetes mellitus with diabetic peripheral angiopathy without gangrene; E11.69 Type 2 diabetes mellitus with other specified complication; M86.8X7 Other osteomyelitis, ankle and foot; I10 Essential (primary) hypertension; I48.91 Unspecified atrial fibrillation; Z87.891 Personal history of nicotine dependence ==

== ENCOUNTER → 2017-12-22 | Outpatient (CLI) | payer MEDICARE | LOC: M.WC 05:09 | DX: E11.621 Type 2 diabetes mellitus with foot ulcer (principal); L97.511 Non-pressure chronic ulcer of other part of right foot limited to breakdown of skin; E11.40 Type 2 diabetes mellitus with diabetic neuropathy, unspecified; E11.51 Type 2 diabetes mellitus with diabetic peripheral angiopathy without gangrene; I10 Essential (primary) hypertension; E11.69 Type 2 diabetes mellitus with other specified complication; M86.8X7 Other osteomyelitis, ankle and foot; I48.91 Unspecified atrial fibrillation; Z87.891 Personal history of nicotine dependence ==

== ENCOUNTER → 2018-01-05 | Outpatient (CLI) | payer MEDICARE | LOC: M.WC 04:41 | DX: E11.621 Type 2 diabetes mellitus with foot ulcer (principal); L97.511 Non-pressure chronic ulcer of other part of right foot limited to breakdown of skin; L89.893 Pressure ulcer of other site, stage 3; E11.40 Type 2 diabetes mellitus with diabetic neuropathy, unspecified; E11.51 Type 2 diabetes mellitus with diabetic peripheral angiopathy without gangrene; E11.69 Type 2 diabetes mellitus with other specified complication; M86.8X7 Other osteomyelitis, ankle and foot; I10 Essential (primary) hypertension; I48.91 Unspecified atrial fibrillation; Z87.891 Personal history of nicotine dependence ==

== ENCOUNTER → 2018-01-12 | Outpatient (CLI) | payer MEDICARE ==
--- NOTE | 2018-01-13 12:27 | CON ---
[address] [address] CONSULTATION Name: AGUILAVERNON MENSAH Room: [facility] Patrick.#: [id number] Admission: 01/12/18 Attend Phys: William Scales DPM Discharge: Date of : 41 Report #: [id number] THIS REPORT FOR: //name// CC: William Scales Archie Lopezaudi DATE OF SERVICE: 01/12/2018 INFECTIOUS DISEASE CONSULTATION FOLLOWUP ATTENDING PHYSICIAN: William Scales DPM He returns in scheduled visit. The patient [facility]. Of course, the last several weeks I had seen him previously for ongoing issues of infection involving his right foot. He had actually done fairly well postop, had completed a course of therapy and had been doing well. In particular over the course of the last few weeks, he had developed a second lateral ulcer felt to be secondary perhaps to the dressings and shearing. He presents today with a new wound on the dorsal aspect. On evaluation, he was found to have tracking. It is not clear that it completely tracks to the residual lateral plantar ulcer, although it is likely. He has not been systemically ill. He denies any fevers or chills. Post-debridement culture was collected. Review of the culture showed oxacillin-resistant Staph aureus. He did have some minocycline in the home. I instructed him to restart that and we will await these culture results. I suspect he did have a complicating infection at this point. Wound care with packing in the tunnel as per Dr. Scales. He was instructed to call if he had any clinical illness or signs or symptoms of worsening either locally or systemically. We will adjust therapy as needed. <ELECTRONICALLY SIGNED> By: Kevin Brand MD 01/13/18 1227 0853 0941Josocrates Brand MD /nt
== END ==
LOC: M.WC 05:13
DX: I70.235 Atherosclerosis of native arteries of right leg with ulceration of other part of foot (principal); L97.511 Non-pressure chronic ulcer of other part of right foot limited to breakdown of skin; L89.893 Pressure ulcer of other site, stage 3; I10 Essential (primary) hypertension; I48.91 Unspecified atrial fibrillation; Z87.891 Personal history of nicotine dependence

== ENCOUNTER → 2018-01-19 | Outpatient (CLI) | payer MEDICARE ==
--- NOTE | 2018-01-20 13:07 | CON ---
[address] [address] CONSULTATION Name: AGUILAVERNON MENSAH Room: [facility] NIHARIK[facility] Nguyen.#: [id number] Admission: 01/19/18 Attend Phys: William Scales DPM Discharge: Date of : 42 Report #: [id number] THIS REPORT FOR: //name// CC: William Sloan DATE OF SERVICE: 01/19/2018 ATTENDING PHYSICIAN: William Scales DPM. HISTORY OF PRESENT ILLNESS: The patient is here for followup ulcer involving his right foot post-transmetatarsal amputation, on the lateral aspect, had developed through and through ulcer. This is culture confirmed with polymicrobial including oxacillin-resistant Staph aureus as well as group A strep, suspected infection in a synergistic fashion. Clinically, he has done better. Interestingly, he was started empirically on Augmentin, has not had recent fevers or chills. Examination does not appear to communicate dorsal to the plantar at this point. ulcer with synergistic infection. We will extend the antibiotics, go ahead and treat with minocycline, should give us a better coverage for the 2 organisms isolated. [facility] He has had limited funds at this point. Continue wound care as prescribed by Dr. Scales. We will follow him up in 2 weeks. <ELECTRONICALLY SIGNED> By: Kevin Brand MD 01/20/18 1307 0737 0948Josocrates Brand MD /brandi
== END ==
LOC: M.WC 04:48
DX: T87.89 Other complications of amputation stump (principal); E11.621 Type 2 diabetes mellitus with foot ulcer; L89.893 Pressure ulcer of other site, stage 3; I70.235 Atherosclerosis of native arteries of right leg with ulceration of other part of foot; L97.511 Non-pressure chronic ulcer of other part of right foot limited to breakdown of skin; E11.40 Type 2 diabetes mellitus with diabetic neuropathy, unspecified; E11.69 Type 2 diabetes mellitus with other specified complication; M86.8X7 Other osteomyelitis, ankle and foot; I10 Essential (primary) hypertension; I48.91 Unspecified atrial fibrillation; Z87.891 Personal history of nicotine dependence; Y83.5 Amputation of limb(s) as the cause of abnormal reaction of the patient, or of later complication, without mention of misadventure at the time of the procedure

== ENCOUNTER → 2018-01-26 | Outpatient (CLI) | payer MEDICARE | LOC: M.WC 03:01 | DX: E11.621 Type 2 diabetes mellitus with foot ulcer (principal); L89.893 Pressure ulcer of other site, stage 3; I70.235 Atherosclerosis of native arteries of right leg with ulceration of other part of foot; L97.511 Non-pressure chronic ulcer of other part of right foot limited to breakdown of skin; E11.40 Type 2 diabetes mellitus with diabetic neuropathy, unspecified; E11.69 Type 2 diabetes mellitus with other specified complication; M86.8X7 Other osteomyelitis, ankle and foot; I10 Essential (primary) hypertension; I48.91 Unspecified atrial fibrillation; Z87.891 Personal history of nicotine dependence ==

== ENCOUNTER → 2018-02-02 | Outpatient (CLI) | payer MEDICARE ==
--- NOTE | 2018-02-03 16:12 | CON ---
[address] [address] CONSULTATION Name: VERNON AGUILA Room: [facility] NIHARIKA Patrick.#: [id number] Admission: 02/02/18 Attend Phys: William Scales DPM Discharge: Date of : 41 Report #: [id number] THIS REPORT FOR: //name// CC: William Sloan DATE OF SERVICE: 02/02/2018 INFECTIOUS DISEASE FOLLOWUP ATTENDING PHYSICIAN: Dr. William Scales. HISTORY OF PRESENT ILLNESS: The patient returns today in followup of deep infection with a chronic ulcer involving now the lateral aspect of his right foot. There has been a previous transection of the toes at the metatarsophalangeal joints. He generally has been doing fairly well. He noted significant decrease in the overall dimension of his lateral plantar foot ulcer, very little undermining at this point. He has been on an extended period of antibiotics, most recently minocycline. ASSESSMENT AND PLAN: Chronic wound. At this point, there is no evidence of infection. We will discontinue the antibiotics and observe. Continue wound care as per Dr. Scales. Certainly, the offloading is santana as well and optimizing nutritional status. We will see as needed. <ELECTRONICALLY SIGNED> By: Kevin Brand MD 02/03/18 1612 0829 1531Josejoanna Brand MD /nt
== END ==
LOC: M.WC 04:10
DX: E11.621 Type 2 diabetes mellitus with foot ulcer (principal); L89.893 Pressure ulcer of other site, stage 3; L97.511 Non-pressure chronic ulcer of other part of right foot limited to breakdown of skin; E11.40 Type 2 diabetes mellitus with diabetic neuropathy, unspecified; E11.69 Type 2 diabetes mellitus with other specified complication; M86.8X7 Other osteomyelitis, ankle and foot; I10 Essential (primary) hypertension; I48.91 Unspecified atrial fibrillation; Z87.891 Personal history of nicotine dependence

== ENCOUNTER → 2018-02-16 | Outpatient (CLI) | payer MEDICARE | LOC: M.WC 14:00 | DX: T87.89 Other complications of amputation stump (principal); E11.621 Type 2 diabetes mellitus with foot ulcer; L97.518 Non-pressure chronic ulcer of other part of right foot with other specified severity; L89.893 Pressure ulcer of other site, stage 3; I70.235 Atherosclerosis of native arteries of right leg with ulceration of other part of foot; E11.69 Type 2 diabetes mellitus with other specified complication; M86.8X7 Other osteomyelitis, ankle and foot; E11.51 Type 2 diabetes mellitus with diabetic peripheral angiopathy without gangrene; E11.40 Type 2 diabetes mellitus with diabetic neuropathy, unspecified; I10 Essential (primary) hypertension; I48.91 Unspecified atrial fibrillation; Z87.891 Personal history of nicotine dependence; Y83.5 Amputation of limb(s) as the cause of abnormal reaction of the patient, or of later complication, without mention of misadventure at the time of the procedure ==

== ENCOUNTER 2019-11-16 18:58 | Inpatient (IN) | payer MEDICARE ==
[~2019-11-16] VITALS: Ht 172.7 cm; Wt 68.0 kg
[2019-11-16 19:27] VITALS: BP 153/92
[2019-11-16 19:29] LABS: ABSOLUTE BASOPHILS 0.1 thou/uL (0.0-0.2); ABSOLUTE EOSINOPHILS 0.1 thou/uL (0.0-0.7); ABSOLUTE MONOCYTES 1.4 thou/uL (0.0-1.2); ABSOLUTE NEUTROPHILS 8.1 thou/uL (1.6-8.1); BASOPHILS 0.6 %; EOSINOPHILS 0.5 %; HEMATOCRIT 43.8 % (42.0-52.0); HEMOGLOBIN 14.5 gm/dL (14.0-18.0); LYMPHOCYTES 23.8 %; MCH 29.6 pg (26.0-34.0); MCHC 33.1 g/dL (28.0-37.0); MCV 89.5 fL (80.0-100.0); MONOCYTES 11.1 %; MPV 9.4 fl. (7.2-11.1); NUCLEATED RBCS 0 /100WBC; PLATELET COUNT* 314 thou/uL (150-400); RBC 4.89 mil/uL (4.50-6.00); RDW-CV 14.8 % (10.5-14.5); WBC 12.6 thou/uL (4.0-11.0)
[2019-11-16 19:40] LABS: APTT 26.5 Seconds (25.0-31.3); INR 1.2; PROTIME 12.1 Seconds (9.20-11.50)
[2019-11-16 19:43] LABS: CALCIUM 8.8 mg/dL (8.5-10.1); CREATININE 1.9 mg/dL (0.6-1.3); POTASSIUM 4.8 mmol/L (3.5-5.1)
[2019-11-16 19:54] LABS: BE -10.6 mmol/L (-2 to +3); PCO2 23.6 mmHg (35.0-45.0); pH 7.353 (7.340-7.450)
[2019-11-16 19:54] LABS: ALBUMIN 3.3 g/dL (3.4-5.0); TOTAL BILIRUBIN 1.1 mg/dL (<0.1-1.0); TOTAL PROTEIN 6.6 g/dL (6.4-8.2)
[2019-11-16 19:56] LABS: PO2 50.2 mmHg (75.0-100.0)
[2019-11-16 21:20] VITALS: BP 171/100
--- NOTE | 2019-11-17 06:25 | NUR ---
PATIENT ARRIVED ON UNIT AT APPROX 2145. PATIENT ABLE TO TRANSFER SELF FROM ED COT TO ICU BED. ALERT AND ORIENTED TIMES FOUR. HI FLOW CANNULA PLACED. PATIENT NOTED TO HAVE SUDDEN DECREASE IN ALERTNESS. HEART MONITOR IN PLACE AND RHYTHM NOTED TO BE 26. STERNAL RUB PERFORMED WITH NO CHANGE IN PATIENT STATUS. NO PULSE DETECTED. CODE BLUE CALLED. SEE CODE BLUE FLOW SHEET
--- NOTE | 2019-11-17 12:55 | EKG ---
[place] [address] ELECTROCARDIOGRAM REPORT Name: VERNON AGUILA Room: [facility] M.R.#: [id number] Admission: 11/16/19 Attend Phys: Aguila Clarke Discharge: 11/16/19 Date of : 42 Date of Service: 11/16/19 190 Report #: [id number] THIS REPORT FOR: //name// [facility] ED Test Date: 2019-11-16 Test Time: 19:05:52 Pat Name: VERNON AGUILA Department: Room: [facility] Gender: M Senior Compensation Consultant: CCD : 1940 Requested By: Miguel Queen Order Number: [id number] MD: Ruebns Vega Measurements Intervals [place] Rate: 126 P: ND: QRS: 74 QRSD: 121 T: 266 QT: 284 QTc: 412 Interpretive Statements Incomplete analysis due to missing data in precordial lead(s) Atrial fibrillation Right bundle branch block Nonspecific T abnormalities, lateral leads Missing lead(s): V6 Compared to ECG 07/12/2017 22:14:43 Right bundle-branch block now present T-wave abnormality now present Electronically Signed On 11-17-2019 12:54:02 CDT by Rubens Vega [email or web address] <ELECTRONICALLY SIGNED> By: Rubens Vega MD, [facility] 11/17/19 1254 1905 Rubens Vega MD, [facility] /EPI
== END 2019-11-16 22:45 | DRG 871 ==
LOC: M.ERS 18:58 → M.TBA-ER 21:10 → M.ICU 21:33
PROVIDERS: Family Medicine; ADMIT Internal Medicine
PROC: 0BH17EZ Insertion of Endotracheal Airway into Trachea, Via Natural or Artificial Opening (ICD-10-PCS; principal; 2019-11-16)
DX: A41.9 Sepsis, unspecified organism (principal); J96.01 Acute respiratory failure with hypoxia; E87.1 Hypo-osmolality and hyponatremia; E78.5 Hyperlipidemia, unspecified; I50.9 Heart failure, unspecified; I11.0 Hypertensive heart disease with heart failure; R65.20 Severe sepsis without septic shock; E11.9 Type 2 diabetes mellitus without complications; Z20.828 Contact with and (suspected) exposure to other viral communicable diseases; Z79.82 Long term (current) use of aspirin; Z79.01 Long term (current) use of anticoagulants; Z79.899 Other long term (current) drug therapy; Z79.4 Long term (current) use of insulin; Z79.84 Long term (current) use of oral hypoglycemic drugs; Z86.718 Personal history of other venous thrombosis and embolism; Z90.49 Acquired absence of other specified parts of digestive tract; Z88.8 Allergy status to other drugs, medicaments and biological substances